=== PATIENT | male | born 1950 | race Caucasian/White ===

== ENCOUNTER 2022-10-15 11:26 | Outpatient (CLI) | payer MEDICARE, BC, SELFPAY ==
[2022-10-15 18:49] LABS: Chloride* 94 mmol/L (96-114); Sodium* 126 mmol/L (135-149)
[2022-10-15 18:50] LABS: Potassium* 4.9 mmol/L (3.6-5.1)
[2022-10-15 18:52] LABS: Estimated Glomerular Filt Rate 79 ml/min
[2022-10-15 18:53] LABS: Blood Urea Nitrogen* 15 mg/dL (7-30); Calcium* 9.7 mg/dL (8.4-10.6); Carbon Dioxide* 23 mmol/L (20-32); Glucose* 78 mg/dL (60-115)
[2022-10-15 19:22] LABS: PSA Screen* 1.19 ng/mL (0.10-4.00)
== END 2022-10-15 11:27 | disposition home or self-care (01) ==
PROVIDERS: PCP Family Medicine; Visit Provider Family Medicine
DX: I10 Essential (primary) hypertension (principal); Z12.5 Encounter for screening for malignant neoplasm of prostate
CPT/HCPCS: 80048; 84153

== ENCOUNTER 2022-12-02 09:14 | Outpatient (CLI) | payer MEDICARE, BC, SELFPAY ==
[2022-12-02 13:14] LABS: Chloride* 84 mmol/L (96-114); Potassium* 4.8 mmol/L (3.6-5.1)
[2022-12-02 13:17] LABS: Blood Urea Nitrogen* 22 mg/dL (7-30); Carbon Dioxide* 23 mmol/L (20-32); Creatinine* 1.3 mg/dL (0.5-1.5); Estimated Glomerular Filt Rate 58 ml/min
[2022-12-02 13:18] LABS: Calcium* 9.4 mg/dL (8.4-10.6); Glucose* 105 mg/dL (60-115)
[2022-12-02 14:22] LABS: Sodium* 118 mmol/L (135-149)
== END 2022-12-02 09:15 | disposition home or self-care (01) ==
PROVIDERS: PCP Family Medicine; Visit Provider Family Medicine
DX: I10 Essential (primary) hypertension (principal)
CPT/HCPCS: 80048

== ENCOUNTER 2023-10-16 07:03 | Outpatient (CLI) | payer MEDICARE, BC, SELFPAY ==
--- OUTSIDE RECORDS SUMMARY | 2023-10-16 07:06 | XMS_ITS | Continuity of Care Document ---
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 Production Cost Estimator Name Role Phone Candida Lind MD Unavailable Unavailable Allergies, Adverse Reactions, Alerts Substance Reaction Status Criticality PENICILLIN HivesHives Active No Information Medications Medication Instructions Dosage Effective Dates (start - stop) Status Comments lisinopril 10 mg tablet take 1 tablet by oral route every day 10 MG - Active Procedures Procedure Date Offic/outpt E&m New Mod-hi Routine Serum Collection Cyanocobalamin Hepatic Function Panel Advance Directives Directive Yes / No Effective Date File Name No Information Encounters Encounter Description Practice Location Reason(s) For Visit Diagnoses Date Provider Providers Copied on Encounter [facility], [address] [address], [place], [place], [id number], [place] tel:[phone] [facility] No Information 7 Lelo Tirado . [address] [place] [address], [address], [id number] , [place]. tel: [phone] Offic/outpt E&m New Mod-[facility], [address] [address], [place], [place], [id number], [place] tel:[phone] [facility] GI Symptoms or Concerns (chief complaint) Positive hepatitis C antibody testEssential (primary) hypertension Sep- 7 Lelo Tirado . [address] [place] [address], [address], [id number] , [place]. tel: [phone] Referring Provider: Kale Cruz MD C, [address] , [place], [address]. tel:[phone] Family History Family Member Type Diagnosis Age At Onset Daughter Problem (finding) Alive and well Son Problem (finding) Maternal history of elisabeth betes mellitus Brother Problem (finding) Crohn's disease Payers Payer name Insurance type Covered constitution party ID Authoriza tion(s) [employer] [place] [employer] [place] [id number] Social History Type Description Quantity Date Captured Comments Alcohol Use Details Unknown Caffeine Use Details Unknown Tobacco Use Status Smoking Status No Information Sex Male Chief Complaint And Reason For Visit No Information Reason For Referral Reason For Referral No Information History Of Present Illness Encounter Date Complaint History Of Prese nt Illness GI Symptoms or Concerns The tamela ent is a very pleasant 67-year-old man who presents to GI Clinic today to discuss a positive hepatitis C antibody test. As part of a preoperative physical for cataract surgery, the patient had labs drawn. It was noted that his liver tests were elevated. On June 23, 2017, his AST was 220, ALT 149, bilirubin 1.4, alk phos 86. His hepatitis C antibody was checked and was reactive. Hepatitis B surface antigen was negative. Also, his platelets were normal at 169,000 with an MCV of 105, hemoglobin of 12.9, and white blood cell count of 6.The patient states he has no history ever of inhaled or IV drug use. He has had the same sexual partner, his for over 30 years. Never had a tattoo. He has never had a blood transfusion. He has no known hepatitis C contacts.The patient does say that he has a strong alcohol history. He was drinking multiple beers daily. When his liver tests returned elevated, he stopped drinking and has now been off of alcohol for over six weeks. Functional Status Date Functional Assessmen t No Information Instructions Date Instruction Additional Infor mation No Information Assessments Type Assessment Date No Information Patient Care Teams Name Effective Dates (start - stop) Status Members No Information
--- NOTE | 2023-10-16 07:15 | CRLHL7_ITS ---
For Patients: As a result of the Century Cures Act, medical imaging exams and procedure reports are released immediately into your electronic medical record. You may view this report before your referring provider. If you have questions, please contact your health care provider. Examination: US abdominal aorta Indication: Possible aneurysm on prior x-ray Technique: Marcos scale and color Doppler images of the aorta and common iliac arteries are obtained. Comparison: Lumbar spine films 12/02/2022 Findings: Proximal aorta: 2.9 x 2.9 cm Mid aorta: 2.1 x 2.1 cm Distal aorta: 2.1 x 2.0 cm Right common iliac artery: 1.2 x 1.1 cm Left common iliac artery: 1.2 x 1.3 cm Recommended imaging interval for ectatic aorta: 2.5-2.9 cm: 5 years Impression: Ectatic aorta measuring up to 2.9 cm without aneurysm. Dictated by Ryan Pulido MD @ 10/16/2023 2:29:55 PM (Electronically Signed)
== END 2023-10-16 07:04 | disposition home or self-care (01) ==
LOC: US 07:04
PROVIDERS: PCP Family Medicine; Visit Provider Family Medicine
DX: Z13.6 Encounter for screening for cardiovascular disorders (principal)
CPT/HCPCS: 76775

== ENCOUNTER 2023-10-29 08:15 | Outpatient (RCR) | payer MEDICARE, BC, SELFPAY ==
--- NOTE | 2023-09-23 10:43 | OT.OPOE ---
OT Outpatient Ortho Eval OT Outpatient Ortho Eval* Start: 09/23/23 09:00 Freq: Status: Active Protocol: Document 09/23/23 09:01 EARNEST (Rec: 09/23/23 10:37 EARNEST [id number]) E-signed By July Diaz OTMarizol/Timmy, TERESA OT OP Ortho Eval Details Complexity Complexity Low Insurance Information Insurance Information Medicare B Outpatient History/Precautions Current Condition/Medical Diagnosis Referring Provider Enoch Finn PA-C Treatment Diagnosis Stiffness in L hand, M25.642; Muscle Weakness, M62.81 Date of Onset 08/08/2023 Other Precautions Wear this wrist brace with all activities as patient is very active; come out of the wrist brace for sedentary activities, bathing, eating, sleeping. Occupational therapy referral provided to work on motion and strengthening. While I understand he has chronically poor wrist motion, our goal is to obtain even a few more degrees both in flexion and extension. From Office visit 09/04/23 and next f/u in 1 month for repeat X- rays Medical Conditions Arthritis Other Conditions Primary Condition (Medical dx) : closed, acute left distal radius intra-articular extended nondisplaced dorsal fracture without angulation or significant impaction (date of injury 08/08/2023) Medical/Functional History Medical History Reviewed Yes Social History Employment Status Retired Hobbies Chopping wood, watching football, keeping up with housework Ortho Subjective Subjective Subjective Good luck getting better motion out of this left wrist Pain Assessment Pain Present Pain Present Pain Reported Location Left Wrist Description Dull, Achy,With Movement Intensity 2 Goniometric Comments Goniometric Comments Goniometric Comments R hand ([id number] patient reports an injury 30 years ago and assumes he doesn 't have full AROM) Wrist circumference: 16 cms (1 cm less than the unaffected side) Ulnar Deviation: 14 degrees Radial Deviation: 18 degrees Wrist Flexion: 36 degrees Pronation: 90 degrees Supination: 80 degrees L hand Wrist circumference: 17 cms Ulnar Deviation: 11 degrees Radial Deviation: 9 degrees Wrist Flexion: 32 degrees Wrist Extension: 39 degrees Pronation: 90 degrees Supination: 78 degrees Hand Pinch/Popcorn Attendant Strength Hand Right Popcorn Attendant Strength Position 1 (lbs) 37 Popcorn Attendant Strength Position 2 (lbs) 39 Lateral Pinch Strength (lbs) 16 Three Point Pinch (lbs) 12 Left Popcorn Attendant Strength Position 1 (lbs) 23 Popcorn Attendant Strength Position 2 (lbs) 27 Lateral Pinch Strength (lbs) 14 Three Point Pinch (lbs) 14 OT Objective Data Sensation Sensation Assessment Summary Comments The distal portion of the L UE is intact to light touch, pressure, hot/cold temperature both on dorsal and lamb sides Additional Information Objective Additional Information Follow up visit with ortho provider was on 09/04/23 (1 month follow up) Information below is copied from chart/last office visit with Provider: Enoch Bryson. Left Wrist: No obvious swelling, ecchymosis, or erythema. No gross deformity; there is noted atrophy of the hand musculature, and forearm musculature Minimal Tender palpation and percussion distal radius AROM: Flexion 20?, extension 10? Nontender to manipulation and resisted wrist flexion/ extension 2+ radial pulse, pink, warm, appropriate capillary refill digits; intact dermatomes and myotomes distally (radial, ulnar, and median nerve distributions) Plan Fracture appears stable and shows evidence of healing. The slight ulnar positive position likely result of both this fracture as well as an old left wrist fracture from years past. Okay to come out of the cast, which was removed without complications, and placing a removal wrist brace and Tubigrip. Wear this wrist brace with all activities as patient is very active; come out of the wrist brace for sedentary activities, bathing, eating, sleeping. Discomfort can be managed with oral NSAIDs, acetaminophen, rest, ice. Occupational therapy referral provided to work on motion and strengthening. While I understand he has chronically poor wrist motion, our goal is to obtain even a few more degrees both in flexion and extension. Will see him back in 1 month for repeat three views left wrist, and clinical exam. Likely no further follow-up after this. Impression: Relatively stable appearing left distal radius and ulnar styloid fragment fractures. PA, Lateral and Oblique views of the left wrist were obtained on 09/04/2023 from [facility], were ordered by a different physician, were reviewed by me today, and show relatively stable appearing left distal radius fracture and ulnar styloid fragment compared with radiographs dated 08/21/2023. Increased radiodensity consistent with healing. Radiolunate angle approximately 15 ?, lunate tip dorsally. OT Problems Problems Problems Decreased Strength,Decreased Range of Motion,Pain,Decreased Coordination,Lifting,Gripping ,Pinching Problems Comments Vacuuming and doing dishes Other Problems Opening Containers Patient Potential Good Assessment Assessment Assessment 73 year old had a fall in the [place] resulting in a closed, acute left distal radius intra -articular extended nondisplaced dorsal fracture without angulation or significant impaction (date of injury 08/08/2023). Cast was removed on 09/04/23 and x-rays showed the fracture is stable and showing evidence of healing. Per chart review, provider wrote slight ulnar positive position likely result of both this fracture as well as an old left wrist fracture from years past. Patient was instructed at this f/u apt to: Wear wrist brace with all activities as patient is very active; come out of the wrist brace for sedentary activities, bathing, eating, sleeping. Discomfort can be managed with oral NSAIDs, acetaminophen, rest, ice. Occupational therapy referral provided to work on motion and strengthening. While I understand he has chronically poor wrist motion, our goal is to obtain even a few more degrees both in flexion and extension. OT POC includes edema management, conservative pain control as needed with modalities, AROM, AAROM, slowly beginning strengthening as patient tolerates. Patient's next Ortho f/u is in 1 month. Occupational Therapy Treatment Plan - OP Potential Rehabilitation Potential Good Barriers Barriers to goal attainment None noted Set Goals Goals Set with Patient Yes Goals Goals 1. Through activity participation in skilled therapy sessions, and consistency in performing a customized HEP, patient will improve capacity of tendons and muscles to manage load in order to have less pain with ADLs, work, leisure activities and IADLs. 2. Patient will increase Active L wrist flexion (32 degrees/extension (39 degrees) from a total of 71 degrees of motion to a total of 80 degrees of active flexion/ extension in order to wash dishes 3. 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 Patient will decrease edema in the L wrist by .5 cm's (L Wrist circumference: 17 cms) GOAL 16.5 cms (unaffected R side was 16 cm's). Target Date 6 weeks Treatment Plan Treatment Plan Evaluation,Edema Control,Joint Mobilization,Manual Therapy, Ultrasound,Therapeutic Exercise,Education Expected Frequency 1x Week Expected Duration 8-10 Weeks Home Program Home Program Home Program Initiated Home Program Specifics AROM of the L wrist to end ranges/stretches of the flexors and extensor muscles of the wrist Tendon glides on the L hand, active muscle pumping (open and close hand). Patient was provided with 2 handouts as well as yellow Therjayy leonard on 09/23/23 Certification Certification I Certify That: Therapy Services Provided, Therapy Plan Established, Therapy Plan Reviewed Recertification Information Recertification Information Initial Certification Date 09/23/23 Recertification Due Date 12/22/23 Provider Signature Shows Agreement With POC & Medical Necessity Physician Comment/Change Comment or Changes Physician NPI Number #
--- NOTE | 2023-10-29 10:24 | PT.OPEX ---
PT [facility] Outpatient Eval PT [facility] Outpatient Eval Start: 10/29/23 07:48 Freq: Status: Active Protocol: Document 10/29/23 07:49 CRP (Rec: 10/29/23 10:21 CRP [id number]) E-signed By Krzysztof Arvizu PT Physical Therapy Outpatient Evaluation Insurance Information Recert Due Date 01/27/24 Insurance Name Medicare B Medical Diagnosis Chronic back pain Referring MD Dr Cruz Subjective Subjective Pt c/o upper lumbar spine pain . Mornings are less painful and as the day progresses it will get worse. Sitting is OK and lying down. Pain will increase significantly with standing and walking. Pain has been an issue for about 5 years. No specific injury. Will have times of knee pain bilaterally but this is not necessarily related to his low back. Has not found anything that helps his back. No pain into his legs. No numbness or tingling into the LEs. Pain Comments Can be as high as 10/10 Current Work Status Retired Objective Range of Motion Trunk ROM Flex mod dec with guarded movement and pain Ext min/mod dec without pain Bilat SB mod dec without pain Bilat rot mod dec Hip ROM WNL bilat Strength MMT Myotomes WNL Trunk flex/ext 3-/5 Palpation Palpable pain lower lumbar spine bilat Palpable pain TL junction bilat Posture Flattened lumbar spine with sway back posture Sensation/Reflexes Sensation intact to light touch Other/Pertinent Objective SLR negative bilat for LBP but shows adverse neurodynamics on L Functional Test Performed & Score Oswestry Assessment Assessment/Impression Pt presents to the clinic with long standing issues of TL junction to low back pain. Pts presentation is characterized by painful loss of lumbar spine ROM, poor lumbopelvic control, fear avoidance behavior, painful hypomobility of lumbar spine segments and adverse neurodynamics. Skilled PT is necessary to incorporate ther ex, nm james, manual therapy, ther act and pt education to decrease pain and improve functional mobility. Primary Functional Limitations Standing Walking Bending Lifting Plan of Care Rehabilitation Potential Good Physical Therapy Goals 1. Pt will be independent with HEP in 8 weeks. 2. 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 3. Pt will walk greater than 15 minutes for exercise with 90% decrease in pain in 12 weeks. Coordination/Communication With Referral Source Treatment Plan/Direct Interventions Joint Mobilization,Manual Therapy,Neuromuscular Re-ed, Self-Care/Home Management, Therapeutic Activities, Therapeutic Exercises Frequency/Duration 1-2x/wk for 12 weeks Patient Will Be Discharged From Therapy Completion of LTG(s),Skills Plateau,Independent w/HEP, Independently Progressing Evaluation Billing Untimed Code Treatment Minutes 30 Complexity Moderate Certification Information Initial Certification Date 10/29/23 Ending Certification Date 01/27/24 Provider Signature Shows Agreement With POC & Medical Necessity Physician Signature & Date Requested Please Sign/Date Here Physician Comment/Change : Physician NPI Number #
== END 2024-02-26 23:59 | disposition home or self-care (01) ==
PROVIDERS: PCP Family Medicine; Visit Provider Physician Assistant Surgical
DX: S52.509A Unspecified fracture of the lower end of unspecified radius, initial encounter for closed fracture (principal); M54.9 Dorsalgia, unspecified; G89.29 Other chronic pain; M25.642 Stiffness of left hand, not elsewhere classified; M62.81 Muscle weakness (generalized); Z51.89 Encounter for other specified aftercare
CPT/HCPCS: 80048; 80061; 84153; 84443; 97110; 97162; 97165; X5282

== ENCOUNTER 2024-06-28 07:16 | Emergency (ER) | payer MEDICARE, BC, SELFPAY ==
[2024-06-28] VITALS (10 sets, daily range): BP systolic 92–125; BP diastolic 59–84; PULSE 65–120; RESP 18; TEMP 36.1; O2SAT 90–100; BMI 23.6
[2024-06-28] MEDS: 0.9 % SODIUM CHLORIDE 1000 ml 1,000 ML IV (07:40)
--- NOTE | 2024-06-28 07:48 | ED_ITS ---
HPI - General Adult General Chief complaint: Weakness <Elva Panda MD - Last Filed: 06/29/24 18:53> Stated complaint: lightheaded,dizzy <Elva Panda MD - Last Filed: 06/29/24 18:53> Time Seen by Provider: 06/28/24 07:37 <Elva Panda MD - Last Filed: 06/29/24 18:53> Source: patient <Elva Panda MD - Last Filed: 06/29/24 18:53> Mode of arrival: ambulatory <Elva Panda MD - Last Filed: 06/29/24 18:53> Limitations: no limitations <Elva Panda MD - Last Filed: 06/29/24 18:53> History of Present Illness HPI narrative: 74-year-old presents with a vague history of subjective dizziness more so described as weakness rather than vertigo for the past couple of days. But he does contradict the timing quite a bit. It does sound as though this is intermittent. Patient arrived today with the intent to drop his off for her scheduled colonoscopy and he was feeling so weak that he was worried he might not be able to get back to his truck. Because of this, he has checked himself in to the emergency department. He is not any chest pain, he does not note any focal neurological change. He says that his has been out of town for the past couple of weeks on vacation and he admits to not eating well when she is not around because he ?cannot cook for himself?. He does contradict himself as well when we discussed how much alcohol to he drinks. He tells me that he is drinking a lot less than he used to but he also alludes to the fact that he drinks make a lobes from time to time and then regularly drinks whiskey as well. When I try to further quantify and pin him down on how much alcohol on a daily basis, he gives vague answers. Frequently but definitely avoiding the question. When asked about bloody stools, any GI symptoms, it sounds as though he has had a history of upper GI bleed in the past and endoscopy. I will need to chance to review the records to further clarify this. It does not sound as though he takes any antacids. He has not noticed any bloody stools recently but says that he had coffee-ground stools years ago when he had the endoscopy. When I try to pin down timing on that, he is again vague. When asked about any recent falls, he says that he falls frequently but again does not dilute to any particular recent falls or new trauma or injury. He says that he lives out in the [facility] and has minor injuries frequently but has been advised to stay closer to the house due to previous injuries. He does not believe there have been any recent changes to his medications. I do ask if he believes he has been taking those properly while his was out of town and he isn't quite sure but thinks that he has. He denies any fevers, skin rashes, GI changes, chest pain, breathing difficulties. No pertinent travel for him, no recent illness exposures. Denies any focal neurological changes or stroke-like symptoms. He does allude to some chronic neck and back pain, does not use any narcotics or any particular treatments for that and states that those are not new ailments. Denies any current tobacco use. Denies anticoagulant use. Past medical history notable for hypertension, osteoarthritis of multiple sites. BPH. He also is admitting to regular alcohol use though he does not quantify it for me. Current home medications are listed, he cannot remember what they are but tells me he is soon as that these are correct. ROS is notable for the generalized symptoms as described above only, though quite vague. He does otherwise specifically deny acute symptoms times 12 systems. <Elva Panda MD - Last Filed: 06/29/24 18:53> Related Data Home medications: Previous Rx's ?Medication ?Instructions ?Recorded finasteride 5 mg tablet 5 mg PO QDAY #90 tabs 10/07/23 lisinopril 20 mg tablet 20 mg PO DAILY #90 tabs 10/07/23 tamsulosin 0.4 mg capsule 0.8 mg (2 x 0.4 mg) PO QHS #60 caps 10/07/23 <Elva Panda MD - Last Filed: 06/29/24 18:53> Allergies/adverse reactions: Allergies Allergy/AdvReac Type Severity Reaction Status Date / Time penicillin V Allergy Mild Rash Verified 10/07/23 09:52 <Elva Panda MD - Last Filed: 06/29/24 18:53> [facility] Medical History: Medical History Distal radius fracture (08/08/23) ?S52.509A - Unspecified fracture of the lower end of unspecified radius, initial encounter for closed fracture (ICD-10) Colitis due to Clostridium difficile ?A04.72 - Enterocolitis due to Clostridium difficile, not specified as recurrent (ICD-10) <Elva Panda MD - Last Filed: 06/29/24 18:53> Surgical History: Surgical History S/P partial colectomy ?Z90.49 - Acquired absence of other specified parts of digestive tract (ICD- 10) Status post vasectomy (10/19/12) ?Z98.52 - Vasectomy status (ICD-10) Status post cataract extraction ?Z98.49 - Cataract extraction status, unspecified eye (ICD-10) Status post appendectomy ?Z90.49 - Acquired absence of other specified parts of digestive tract (ICD- 10) <Elva Panda MD - Last Filed: 06/29/24 18:53> Social History: Social History Narrative: alcohol abuse What is your current living situation?: I presently have a place to live Problems where you live: no known problems In the past 12 months, utilities in danger of being shut off: no In past 12 months, lack of transportation kept you from medical appts, meetings, work, or getting things needed for daily living: no In the past 12 mos, have been you worried that your food would run out before you had money to buy more?: never true In the past 12 mos, the food you bought just didn't last and you didn't have money to buy more?: never true Smoking Status: Former smoker What tobacco products do you use: cigarettes Smoking quit date/years: <= 15 years ago Do you use any of these nicotine containing products: None Second hand tobacco smoke exposure: No How often do you have a drink containing alcohol: monthly or less How often do you have six or more drinks on one occasion: Never AUDIT-C Alcohol total score: 1 Non-prescribed substance use: denies use How often does anyone, including family, friends and others, physically hurt you : never How often does anyone, including family, friends and others, insult or talk down to you: never How often does anyone, including family, friends and others, threaten you with harm: never How often does anyone, including family, friends and others, scream or curse at you: never Little interest or pleasure in doing things: not at all Feeling down, depressed, or hopeless: not at all service: No <Elva Panda MD - Last Filed: 06/29/24 18:53> Exam Const: Vital Signs, click to edit/add: Vital Signs - 24 hr 06/28/24 07:19 06/28/24 07:45 06/28/24 08:32 Temperature 97 F L Pulse Rate 89 73 Pulse Rate [Right Pulse Oximeter] 120 H Respiratory Rate 18 Blood Pressure Blood Pressure [Ri ght Upper Arm] 92/59 L Pulse Oximetry 99 96 100 Oxygen Delivery Me thod Room Air 06/28/24 08:45 06/28/24 08:48 06/28/24 09:00 Temperature Pulse Rate 87 74 65 Pulse Rate [Right Pulse Oximeter] Respiratory Rate Blood Pressure 103/78 Blood Pressure [Ri ght Upper Arm] Pulse Oximetry 98 100 100 Oxygen Delivery Me thod 06/28/24 09:03 06/28/24 09:15 06/28/24 09:33 Temperature Pulse Rate 67 65 80 Pulse Rate [Right Pulse Oximeter] Respiratory Rate Blood Pressure 125/76 Blood Pressure [Ri ght Upper Arm] Pulse Oximetry 100 100 90 Oxygen Delivery Me thod 06/28/24 09:35 Temperature Pulse Rate 81 Pulse Rate [Right Pulse Oximeter] Respiratory Rate Blood Pressure 123/84 Blood Pressure [Ri ght Upper Arm] Pulse Oximetry 90 Oxygen Delivery Me thod <Elva Panda MD - Last Filed: 06/29/24 18:53> Vital Signs, click to edit/add: Vital Signs - 24 hr 06/28/24 07:19 06/28/24 07:45 06/28/24 08:32 Temperature 97 F L Pulse Rate 89 73 Pulse Rate [Right Pulse Oximeter] 120 H Respiratory Rate 18 Blood Pressure Blood Pressure [Ri ght Upper Arm] 92/59 L Pulse Oximetry 99 96 100 Oxygen Delivery Me thod Room Air 06/28/24 08:45 06/28/24 08:48 06/28/24 09:00 Temperature Pulse Rate 87 74 65 Pulse Rate [Right Pulse Oximeter] Respiratory Rate Blood Pressure 103/78 Blood Pressure [Ri ght Upper Arm] Pulse Oximetry 98 100 100 Oxygen Delivery Me thod 06/28/24 09:03 06/28/24 09:15 06/28/24 09:33 Temperature Pulse Rate 67 65 80 Pulse Rate [Right Pulse Oximeter] Respiratory Rate Blood Pressure 125/76 Blood Pressure [Ri ght Upper Arm] Pulse Oximetry 100 100 90 Oxygen Delivery Me thod 06/28/24 09:35 Temperature Pulse Rate 81 Pulse Rate [Right Pulse Oximeter] Respiratory Rate Blood Pressure 123/84 Blood Pressure [Ri ght Upper Arm] Pulse Oximetry 90 Oxygen Delivery Me thod <Christian Killian MD - Last Filed: 06/28/24 12:01> Other: Thank on questioning and history time line. Does not seem to be deceptive but rather may be exhibiting some illness related delirium or some chronic memory impairment. He is otherwise very pleasant and cooperative. <Elva Panda MD - Last Filed: 06/29/24 18:53> HENMT: Common normals: normocephalic <Elva Panda MD - Last Filed: 06/29/24 18:53> Head and scalp: normal to inspection and normocephalic <Elva Panda MD - Last Filed: 06/29/24 18:53> Face and sinus: normal facial exam <Elva Panda MD - Last Filed: 06/29/24 18:53> Mouth: oral and palatal mucosa normal <Elva Panda MD - Last Filed: 06/29/24 18:53> Throat: posterior oropharynx normal <Elva Panda MD - Last Filed: 06/29/24 18:53> Eye: Common normals: conjunctivae normal <Elva Panda MD - Last Filed: 06/29/24 18:53> General eye: normal appearance of both eyes <MD Brandon Bui Last Filed: 06/29/24 18:53> Conjunctiva: conjunctiva(e) normal <MD Brandon Bui Last Filed: 06/29/24 18:53> Neck & C-Spine: Common normals: full ROM and no lymphadenopathy <MD Brandon Bui Last Filed: 06/29/24 18:53> Cervical spine: cervical ROM normal <MD Brandon Bui Last Filed: 18:53> Chest: Common normals: inspection of chest normal <MD Brandon Bui Last Filed: 06/29/24 18:53> Resp: Common normals: normal respiratory effort, no use of accessory muscles and clear to auscultation bilaterally <MD Brandon Bui Last Filed: 06/29/24 18:53> Effort & inspection: able to speak in complete sentences <MD Brandon Bui Last Filed: 06/29/24 18:53> Auscultation: clear to auscultation bilaterally <MD Brandon Bui Last Filed: 06/29/24 18:53> Cardio: Common normals: regular rate, regular rhythm, S1 normal heart sound, S2 normal heart sound and no murmurs <MD Brandon Bui Last Filed: 06/29/24 18:53> Rate: regular rate <MD Brandon Bui Last Filed: 06/29/24 18:53> Rhythm: regular rhythm <MD Brandon Bui Last Filed: 06/29/24 18:53> Heart sounds: S1 normal and S2 normal <MD Brandon Bui Last Filed: 06/29/24 18:53> GI: Common normals: Normal to inspection, nondistended, normoactive bowel sounds present, soft to palpation, non-tender and no masses <MD Brandon Bui Last Filed: 06/29/24 18:53> Palpation: soft <MD Brandon Bui Last Filed: 06/29/24 18:53> Other: Liver seems enlarged 1-2 cm below costal margin, no ascites. <Elva Panda MD - Last Filed: 06/29/24 18:53> Back & Pelvis: Common normals: thoracic and lumbar spine normal to inspection <Elva Panda MD - Last Filed: 06/29/24 18:53> Extremity: Common normals: normal to inspection, normal capillary refill and no pedal edema <Elva Panda MD - Last Filed: 06/29/24 18:53> Neuro: Common normals: CN's II-XII intact bilaterally and moves all extremities <Elva Panda MD - Last Filed: 06/29/24 18:53> Speech: speech normal <Elva Panda MD - Last Filed: 06/29/24 18:53> Motor exam: strength 5/5 throughout, no tremor noted and no movement abnormalities noted <Elva Panda MD - Last Filed: 06/29/24 18:53> Psych: Appearance: grossly normal <Elva Panda MD - Last Filed: 06/29/24 18:53> Attitude: engaged <Elva Panda MD - Last Filed: 06/29/24 18:53> Activity/motor behavior: appropriate eye contact <Elva Panda MD - Last Filed: 06/29/24 18:53> Mood and affect: euthymic mood <Elva Panda MD - Last Filed: 06/29/24 18:53> Insight: fair <Elva Panda MD - Last Filed: 06/29/24 18:53> Judgement: fair <Elva Panda MD - Last Filed: 06/29/24 18:53> Skin: Common normals: no rashes or lesions noted <Elva Panda MD - Last Filed: 06/29/24 18:53> General skin exam: no rashes or lesions noted <Elva Panda MD - Last Filed: 06/29/24 18:53> Course Course ED Course: 74-year-old male with mild hypotension and tachycardia, afebrile presenting with vague generalized weakness in the setting of some delirium versus memory impairment. Differential diagnosis is wide including acute cardiac process, alcoholism, anemia, infection, electrolyte abnormality, vitamin deficiency, kidney injury, neurological process, stroke, amongst many others. Unfortunately exam was not particularly helpful in pending this down. Plan 1. Insert IV, basic labs to look for infection, cardiac process, anemia, electrolyte abnormality. Head CT, EKG, advanced practice provider, 1 L normal saline. Will hand over care to incoming day shift partner. <Elva Panda MD - Last Filed: 06/29/24 18:53> Reevaluation(s) Reevaluation #1: Patient signed out to Dr. Killian at shift change. Dr. Perla reassessed the patient at about 8:15 a.m.. Patient reports that he is . His had been up at the cabin for about 10 days. He knows that he has not been eating or drinking well while she has been gone. He says he just does not a code. He has been eating frozen pizza as and take out subway sandwiches. He is probably min not been drinking enough fluids as well. He has been feeling a little bit weak and dizzy for a couple of days. He brought his to the hospital today for her outpatient colonoscopy and was still feeling weak and dizzy. He was actually going to go out to his truck to sleep but decided he was just too weak and too dizzy so he came here to the ER for No headache. No recent falls. No chest pain. No palpitations. No cough. No trouble breathing. No abdominal pain. No nausea or vomiting. Bowel movements have been normal. No black or bloody stools. No diarrhea. Urination has been much less than normal but otherwise no dysuria, urgency, frequency. No rash. He has a history of high blood pressure and is on lisinopril. He says he has not measured his blood pressure recently but he typically runs pretty good in the 120s systolic. He recalls once, few years ago, he was dizzy like this and was seen at the hospital in [place]. Apparently they had to adjust his blood pressure medications because of borderline hypotension at that time. <Christian Killian MD - Last Filed: 06/28/24 12:01> Reevaluation #2: Recheck labs are back. No definitive cause for dizziness and weakness identified. 1. Neuro: Head CT is normal. No signs of recent intracranial hemorrhage. No signs of head trauma. He is not having any focal deficits to suggest stroke. He is describing an overall weak feeling and lightheaded dizziness rather than vertigo. At this point I do not think he needs MR imaging 2. The heme: He does have anemia. Hemoglobin today is 11.5. This is down from most recent hemoglobin of 13 which was taken 2 years ago in 2021. Unclear if this is acute or chronic. I wonder if he could be having some subacute GI bleeding. Denies any recent black or bloody stools. He is not anticoagulated. Platelet count normal. 3. ID: No fevers. White count normal. Procalcitonin reassuring. Urinalysis negative. No recent cough. No trouble breathing to suggest pneumonia. COVID/influenza/RSV PCR negative. 4. Cardiac: EKG nonischemic. Troponin undetectable. Not having any chest pain or palpitations. Has sinus rhythm on his EKG with some premature beats. 5. Hepatic: Is very vague about his alcohol consumption. Dr. Panda suspicious that he is probably a fairly heavy drinker but is not reporting it. LFTs are abnormal with AST of 300 and ALT of 213. Total bilirubin normal at 0.7. No signs of active acute alcohol intoxication.. Alcohol level negative. No tremor or signs of alcohol withdrawal. He does report that he has been drinking ?too much? while his 's been away at the cabin. He still not quantify how much she is drinking. He endorses his plan to stop drinking altogether. He is feeling completely back to normal in much better after receiving on a L of IV crystalloid here in the ER. Pulses come down and blood pressure has come up. Both are in normal ranges now. He is politely but firmly requesting a rapid discharge because his ride home is here to pick him up. His has completed her colonoscopy and she is at his bedside. Discussed the workup showing renal insufficiency, mild anemia, abnormal LFTs. Patient needs to follow up outpatient with his primary care provider within 1 week for recheck. He will abstain from alcohol. He will try to eat a regular healthy diet and stay hydrated. We discussed that if he has any worsening symptoms are recurring dizziness he should return to the ER right away to be rechecked. Reviewed with the patient and his . He and his are eager for discharge. <Christian Killian MD - Last Filed: 06/28/24 12:01> Vital Signs Vital signs: Initial Vital Signs Temperature 97 F L 06/28/24 07:19 Temperature Source Temporal Artery Scan 06/28/24 07:19 Pulse Rate 120 H 06/28/24 07:19 Pulse Rhythm Regular 06/28/24 07:19 Respiratory Rate 18 06/28/24 07:19 Blood Pressure 92/59 L 06/28/24 07:19 Blood Pressure Mean 70 06/28/24 07:19 Blood Pressure Position Sitting 06/28/24 07:19 Pulse Oximetry 99 06/28/24 07:19 Oxygen Delivery Method Room Air 06/28/24 07:19 Vital Signs Temperature 97 F L 06/28/24 07:19 Pulse Rate 120 H 06/28/24 07:19 Respiratory Rate 18 06/28/24 07:19 Blood Pressure 92/59 L 06/28/24 07:19 Pulse Oximetry 99 06/28/24 07:19 Oxygen Delivery Method Room Air 06/28/24 07:19 Temperature 97 F L 06/28/24 07:19 Pulse Rate 81 06/28/24 09:35 Respiratory Rate 18 06/28/24 07:19 Blood Pressure 123/84 06/28/24 09:35 Pulse Oximetry 90 06/28/24 09:35 Oxygen Delivery Method Room Air 06/28/24 07:19 <Elva Panda MD - Last Filed: 06/29/24 18:53> Initial Vital Signs Temperature 97 F L 06/28/24 07:19 Temperature Source Temporal Artery Scan 06/28/24 07:19 Pulse Rate 120 H 06/28/24 07:19 Pulse Rhythm Regular 06/28/24 07:19 Respiratory Rate 18 06/28/24 07:19 Blood Pressure 92/59 L 06/28/24 07:19 Blood Pressure Mean 70 06/28/24 07:19 Blood Pressure Position Sitting 06/28/24 07:19 Pulse Oximetry 99 06/28/24 07:19 Oxygen Delivery Method Room Air 06/28/24 07:19 Vital Signs Temperature 97 F L 06/28/24 07:19 Pulse Rate 120 H 06/28/24 07:19 Respiratory Rate 18 06/28/24 07:19 Blood Pressure 92/59 L 06/28/24 07:19 Pulse Oximetry 99 06/28/24 07:19 Oxygen Delivery Method Room Air 06/28/24 07:19 Temperature 97 F L 06/28/24 07:19 Pulse Rate 81 06/28/24 09:35 Respiratory Rate 18 06/28/24 07:19 Blood Pressure 123/84 06/28/24 09:35 Pulse Oximetry 90 06/28/24 09:35 Oxygen Delivery Method Room Air 06/28/24 07:19 <Christian Killian MD - Last Filed: 06/28/24 12:01> Medications Administered Medications: Discontinued Medications Generic Name Dose Route Start Last Admin Trade Name Freq PRN Reason Stop Dose Admin Sodium Chloride 1,000 mls @ 1,000 mls/hr 06/28/24 07:36 06/28/24 10:30 0.9 % Sodium Chloride 1000 Ml IV 06/28/24 08:35 1,000 mls/hr .Q1H PAVAN Infusion <Elva Panda MD - Last Filed: 06/29/24 18:53> Discontinued Medications Generic Name Dose Route Start Last Admin Trade Name Freq PRN Reason Stop Dose Admin Sodium Chloride 1,000 mls @ 1,000 mls/hr 06/28/24 07:36 06/28/24 10:30 0.9 % Sodium Chloride 1000 Ml IV 06/28/24 08:35 1,000 mls/hr .Q1H PAVAN Infusion <Christian Killian MD - Last Filed: 06/28/24 12:01> Medical Decision Making Lab Data Labs: Lab Results 06/28/24 06/28/24 06/28/24 Range/Units 07:35 07:45 09:30 WBC 9.20 (4.50-11.00) K/uL RBC 3.40 L (4.30-5.90) m/uL Hgb 11.5 L (13.5-17.5) gm/dL Hct 34.7 L (37.0-53.0) % MCV 102 H (80-100) fL MCH 34 (26-34) pg MCHC 33 (32-36) gm/dL RDW Coeff of Shannan 12.4 (11.5-15.5) % Plt Count 178 (140-440) K/uL Neut % (Auto) 71.9 (42.0-72.0) % Lymph % (Auto) 17.9 L (20-44) % [place] % (Auto) 8.0 (0.0-11.0) % Eos % (Auto) 1.2 (0.0-7.0) % Baso % (Auto) 0.5 (0.0-3.0) % Neut # (Auto) 6.60 (1.7-7.0) K/uL Lymph # (Auto) 1.60 (0.90-2.90) K/uL [place] # (Auto) 0.70 (0.00-0.90) K/UL Eos # (Auto) 0.11 (0.00-0.50) K/uL Baso # (Auto) 0.05 (0.00-0.30) K/uL Abs Immat Gran (auto) 0.05 (0.00-0.30) K/uL Imm/Tot Granulo (auto) 0.5 % Sodium 132 L (135-149) mmol/L Potassium 3.8 (3.6-5.1) mmol/L Chloride 99 (96-114) mmol/L Carbon Dioxide 22 (20-32) mmol/L Anion Gap 11 (7-15) mEq/L BUN 34 H (7-30) mg/dL Creatinine 1.8 H (0.5-1.5) mg/dL Estimated Creat Clear 34.91 Estimated GFR 39 ml/min Glucose 135 H (60-115) mg/dL Lactate 2.1 H (0.5-1.9) mmol/L Calcium 9.0 (8.4-10.6) mg/dL Total Bilirubin 0.7 (0.1-1.5) mg/dL AST 303 H (12-35) U/L ALT 213 H (4-50) U/L Alkaline Phosphatase 84 (40-150) U/L C-Reactive Protein 1.2 H (0.5-1.0) mg/dL NT-Pro-B Natriuret Pep 461 pg/mL Total Protein 7.3 (6.0-8.3) g/dL Albumin 4.4 (3.3-5.0) g/dL Procalcitonin 0.30 (<0.50) ng/mL Urine Color Yellow (Yellow) Urine Appearance Clear (Clear) Urine pH 5.5 (5.0-8.5) Ur Specific [place] 1.015 (1.000-1.030) Urine Protein 1+ A (Negative) Urine Glucose (UA) Negative (Negative) Urine Ketones 1+ A (Negative) Urine Blood Negative (Negative) Urine Nitrite Negative (Negative) Urine Bilirubin 1+ A (Negative) Urine Urobilinogen 0.2 (0.2-1.0) Ur Leukocyte Esterase Negative (Negative) Urine RBC 0-2 (0-2) Urine WBC 0-2 (0-5) Ur Squamous Epith Cells Few (None-Few) Urine Bacteria None (None) Ethyl Alcohol < 0.01 L (0.01-0.03) % SARS-CoV-2 (PCR) Negative SARS-CoV-2 (Negative) Influenza Type A (PCR) Negative PCR FLU A (Negative) Influenza Type B (PCR) Negative PCR FLU B (Negative) RSV (PCR) Negative PCR RSV (Negative) POC Troponin I 0.00 L (0.01-0.04) ng/ml 06/28/24 Range/Units 09:58 WBC (4.50-11.00) K/uL RBC (4.30-5.90) m/uL Hgb (13.5-17.5) gm/dL Hct (37.0-53.0) % MCV (80-100) fL MCH (26-34) pg MCHC (32-36) gm/dL RDW Coeff of Shannan (11.5-15.5) % Plt Count (140-440) K/uL Neut % (Auto) (42.0-72.0) % Lymph % (Auto) (20-44) % [place] % (Auto) (0.0-11.0) % Eos % (Auto) (0.0-7.0) % Baso % (Auto) (0.0-3.0) % Neut # (Auto) (1.7-7.0) K/uL Lymph # (Auto) (0.90-2.90) K/uL [place] # (Auto) (0.00-0.90) K/UL Eos # (Auto) (0.00-0.50) K/uL Baso # (Auto) (0.00-0.30) K/uL Abs Immat Gran (auto) (0.00-0.30) K/uL Imm/Tot Granulo (auto) % Sodium (135-149) mmol/L Potassium (3.6-5.1) mmol/L Chloride (96-114) mmol/L Carbon Dioxide (20-32) mmol/L Anion Gap (7-15) mEq/L BUN (7-30) mg/dL Creatinine (0.5-1.5) mg/dL Estimated Creat Clear Estimated GFR ml/min Glucose (60-115) mg/dL Lactate 3.7 H (0.5-1.9) mmol/L Calcium (8.4-10.6) mg/dL Total Bilirubin (0.1-1.5) mg/dL AST (12-35) U/L ALT (4-50) U/L Alkaline Phosphatase (40-150) U/L C-Reactive Protein (0.5-1.0) mg/dL NT-Pro-B Natriuret Pep pg/mL Total Protein (6.0-8.3) g/dL Albumin (3.3-5.0) g/dL Procalcitonin (<0.50) ng/mL Urine Color (Yellow) Urine Appearance (Clear) Urine pH (5.0-8.5) Ur Specific [place] (1.000-1.030) Urine Protein (Negative) Urine Glucose (UA) (Negative) Urine Ketones (Negative) Urine Blood (Negative) Urine Nitrite (Negative) Urine Bilirubin (Negative) Urine Urobilinogen (0.2-1.0) Ur Leukocyte Esterase (Negative) Urine RBC (0-2) Urine WBC (0-5) Ur Squamous Epith Cells (None-Few) Urine Bacteria (None) Ethyl Alcohol (0.01-0.03) % SARS-CoV-2 (PCR) (Negative) Influenza Type A (PCR) (Negative) Influenza Type B (PCR) (Negative) RSV (PCR) (Negative) POC Troponin I (0.01-0.04) ng/ml <Elva Panda MD - Last Filed: 06/29/24 18:53> Lab Results 06/28/24 06/28/24 06/28/24 Range/Units 07:35 07:45 09:30 WBC 9.20 (4.50-11.00) K/uL RBC 3.40 L (4.30-5.90) m/uL Hgb 11.5 L (13.5-17.5) gm/dL Hct 34.7 L (37.0-53.0) % MCV 102 H (80-100) fL MCH 34 (26-34) pg MCHC 33 (32-36) gm/dL RDW Coeff of Shannan 12.4 (11.5-15.5) % Plt Count 178 (140-440) K/uL Neut % (Auto) 71.9 (42.0-72.0) % Lymph % (Auto) 17.9 L (20-44) % [place] % (Auto) 8.0 (0.0-11.0) % Eos % (Auto) 1.2 (0.0-7.0) % Baso % (Auto) 0.5 (0.0-3.0) % Neut # (Auto) 6.60 (1.7-7.0) K/uL Lymph # (Auto) 1.60 (0.90-2.90) K/uL [place] # (Auto) 0.70 (0.00-0.90) K/UL Eos # (Auto) 0.11 (0.00-0.50) K/uL Baso # (Auto) 0.05 (0.00-0.30) K/uL Abs Immat Gran (auto) 0.05 (0.00-0.30) K/uL Imm/Tot Granulo (auto) 0.5 % Sodium 132 L (135-149) mmol/L Potassium 3.8 (3.6-5.1) mmol/L Chloride 99 (96-114) mmol/L Carbon Dioxide 22 (20-32) mmol/L Anion Gap 11 (7-15) mEq/L BUN 34 H (7-30) mg/dL Creatinine 1.8 H (0.5-1.5) mg/dL Estimated Creat Clear 34.91 Estimated GFR 39 ml/min Glucose 135 H (60-115) mg/dL Lactate 2.1 H (0.5-1.9) mmol/L Calcium 9.0 (8.4-10.6) mg/dL Total Bilirubin 0.7 (0.1-1.5) mg/dL AST 303 H (12-35) U/L ALT 213 H (4-50) U/L Alkaline Phosphatase 84 (40-150) U/L C-Reactive Protein 1.2 H (0.5-1.0) mg/dL NT-Pro-B Natriuret Pep 461 pg/mL Total Protein 7.3 (6.0-8.3) g/dL Albumin 4.4 (3.3-5.0) g/dL Procalcitonin 0.30 (<0.50) ng/mL Urine Color Yellow (Yellow) Urine Appearance Clear (Clear) Urine pH 5.5 (5.0-8.5) Ur Specific [place] 1.015 (1.000-1.030) Urine Protein 1+ A (Negative) Urine Glucose (UA) Negative (Negative) Urine Ketones 1+ A (Negative) Urine Blood Negative (Negative) Urine Nitrite Negative (Negative) Urine Bilirubin 1+ A (Negative) Urine Urobilinogen 0.2 (0.2-1.0) Ur Leukocyte Esterase Negative (Negative) Urine RBC 0-2 (0-2) Urine WBC 0-2 (0-5) Ur Squamous Epith Cells Few (None-Few) Urine Bacteria None (None) Ethyl Alcohol < 0.01 L (0.01-0.03) % SARS-CoV-2 (PCR) Negative SARS-CoV-2 (Negative) Influenza Type A (PCR) Negative PCR FLU A (Negative) Influenza Type B (PCR) Negative PCR FLU B (Negative) RSV (PCR) Negative PCR RSV (Negative) POC Troponin I 0.00 L (0.01-0.04) ng/ml 06/28/24 Range/Units 09:58 WBC (4.50-11.00) K/uL RBC (4.30-5.90) m/uL Hgb (13.5-17.5) gm/dL Hct (37.0-53.0) % MCV (80-100) fL MCH (26-34) pg MCHC (32-36) gm/dL RDW Coeff of Shannan (11.5-15.5) % Plt Count (140-440) K/uL Neut % (Auto) (42.0-72.0) % Lymph % (Auto) (20-44) % Lincoln % (Auto) (0.0-11.0) % Eos % (Auto) (0.0-7.0) % Baso % (Auto) (0.0-3.0) % Neut # (Auto) (1.7-7.0) K/uL Lymph # (Auto) (0.90-2.90) K/uL Lincoln # (Auto) (0.00-0.90) K/UL Eos # (Auto) (0.00-0.50) K/uL Baso # (Auto) (0.00-0.30) K/uL Abs Immat Gran (auto) (0.00-0.30) K/uL Imm/Tot Granulo (auto) % Sodium (135-149) mmol/L Potassium (3.6-5.1) mmol/L Chloride (96-114) mmol/L Carbon Dioxide (20-32) mmol/L Anion Gap (7-15) mEq/L BUN (7-30) mg/dL Creatinine (0.5-1.5) mg/dL Estimated Creat Clear Estimated GFR ml/min Glucose (60-115) mg/dL Lactate 3.7 H (0.5-1.9) mmol/L Calcium (8.4-10.6) mg/dL Total Bilirubin (0.1-1.5) mg/dL AST (12-35) U/L ALT (4-50) U/L Alkaline Phosphatase (40-150) U/L C-Reactive Protein (0.5-1.0) mg/dL NT-Pro-B Natriuret Pep pg/mL Total Protein (6.0-8.3) g/dL Albumin (3.3-5.0) g/dL Procalcitonin (<0.50) ng/mL Urine Color (Yellow) Urine Appearance (Clear) Urine pH (5.0-8.5) Ur Specific [place] (1.000-1.030) Urine Protein (Negative) Urine Glucose (UA) (Negative) Urine Ketones (Negative) Urine Blood (Negative) Urine Nitrite (Negative) Urine Bilirubin (Negative) Urine Urobilinogen (0.2-1.0) Ur Leukocyte Esterase (Negative) Urine RBC (0-2) Urine WBC (0-5) Ur Squamous Epith Cells (None-Few) Urine Bacteria (None) Ethyl Alcohol (0.01-0.03) % SARS-CoV-2 (PCR) (Negative) Influenza Type A (PCR) (Negative) Influenza Type B (PCR) (Negative) RSV (PCR) (Negative) POC Troponin I (0.01-0.04) ng/ml <Christian Killian MD - Last Filed: 06/28/24 12:01> ECG Data Attestation: I personally reviewed and interpreted this ECG as follows: <Elva Panda MD - Last Filed: 06/29/24 18:53> Prior ECG tracings: not available for review <Elva Panda MD - Last Filed: 06/29/24 18:53> Interpretation: Normal sinus rhythm, rate of 99. Normal axis and intervals. Good R-wave progression, no ST or T-wave abnormalities. Normal EKG. <Elva Panda MD - Last Filed: 06/29/24 18:53> Discharge Plan Discharge Clinical Impression: Dizziness, Anemia, Alcohol abuse, Abnormal LFTs, Renal insufficiency <Elva Panda MD - Last Filed: 06/29/24 18:53> Patient Disposition: Home, Self-Care <Elva Panda MD - Last Filed: 06/29/24 18:53> Condition: Stable <Elva Panda MD - Last Filed: 06/29/24 18:53> Instructions: Abuse of Alcohol (DC), Anemia (ED), Impaired Kidney Function (ED) <Elva Panda MD - Last Filed: 06/29/24 18:53> Additional Instructions: As we discussed, please come back to the ER right away if you have any problems-especially if you have more episodes of dizziness, worsening dizziness or weakness, bloody or black stools, abdominal pain, bloody vomiting, chest pain, or any problems. Abstain from alcohol. Try to drink plenty of fluids and he had a normal healthy diet. Follow-up with your regular doctor within 1 week to recheck your kidney function, liver function, hemoglobin levels and for further workup. <Elva Panda MD - Last Filed: 06/29/24 18:53> Prescriptions: No Action tamsulosin 0.4 mg capsule 0.8 mg PO QHS Qty: 60 11RF finasteride 5 mg tablet 5 mg PO QDAY Qty: 90 3RF lisinopril 20 mg tablet 20 mg PO DAILY Qty: 90 3RF <Elva Panda MD - Last Filed: 06/29/24 18:53> Follow Up/Referrals: Elia Cruz MD [Primary Care Provider] - <Elva Panda MD - Last Filed: 06/29/24 18:53> Stand Alone Forms: MyHealth Info Instructions <Elva Panda MD - Last Filed: 06/29/24 18:53>
--- NOTE | 2024-06-28 07:53 | CRLHL7_ITS ---
For Patients: As a result of the Century Cures Act, medical imaging exams and procedure reports are released immediately into your electronic medical record. You may view this report before your referring provider. If you have questions, please contact your health care provider. INDICATION: Dizziness TECHNIQUE: Noncontrast axial CT of the head. Coronal and sagittal reformats. Bone and soft tissue algorithms. COMPARISON: CT head 09/11/2015 FINDINGS: Prominence of the ventricles and cortical sulci, compatible with generalized cerebral volume loss. No midline shift or mass effect, hydrocephalus or herniation. Preserved reed-white matter differentiation. Unremarkable white matter attenuation. Midline structures appear within normal limits. Calcific intracranial atherosclerotic plaquing. Intact calvarium. Clear visualized paranasal sinuses and mastoid air cells. Bilateral lens implants. IMPRESSION: 1. No CT evidence of acute intracranial abnormality. 2. Mild generalized cerebral volume loss, slightly progressed relative to 2014. Please note that all CT scans at this facility use dose modulation, iterative reconstruction, and/or weight-based dosing when appropriate to reduce radiation dose to as low as reasonably achievable. Dictated by Caroline Lopez MD @ 06/28/2024 8:26:01 AM (Electronically Signed)
[2024-06-28 07:57] LABS: Lactate Sepsis w/Reflex* 2.1 mmol/L (0.5-1.9)
[2024-06-28 07:58] LABS: Basophils Absolute Auto 0.05 K/uL (0.00-0.30); Basophils Percent Auto 0.5 % (0.0-3.0); Eosinophils Absolute Auto 0.11 K/uL (0.00-0.50); Eosinophils Percent Auto 1.2 % (0.0-7.0); Hematocrit 34.7 % (37.0-53.0); Hemoglobin* 11.5 gm/dL (13.5-17.5); Immature Granulocytes Abs Auto 0.05 K/uL (0.00-0.30); Immature Granulocytes Pct Auto 0.5 %; Lymphocytes Percent Auto 17.9 % (20-44); Mean Corpuscular HGB Conc 33 gm/dL (32-36); Mean Corpuscular Hemoglobin 34 pg (26-34); Mean Corpuscular Volume 102 fL (80-100); Neutrophils Percent Auto 71.9 % (42.0-72.0); Platelet Count* 178 K/uL (140-440); RDW Coefficient of Variation % 12.4 % (11.5-15.5)
[2024-06-28 08:00] LABS: Slide Review Reflex No
[2024-06-28 08:13] LABS: Albumin* 4.4 g/dL (3.3-5.0); Chloride* 99 mmol/L (96-114); Sodium* 132 mmol/L (135-149)
[2024-06-28 08:14] LABS: Potassium* 3.8 mmol/L (3.6-5.1)
[2024-06-28 08:16] LABS: Alkaline Phosphatase* 84 U/L (40-150); Bilirubin Total* 0.7 mg/dL (0.1-1.5); Creatinine* 1.8 mg/dL (0.5-1.5); Est. Creatinine Clearance* 34.91; Estimated Glomerular Filt Rate 39 ml/min; Total Protein* 7.3 g/dL (6.0-8.3)
[2024-06-28 08:17] LABS: Blood Urea Nitrogen* 34 mg/dL (7-30); Glucose* 135 mg/dL (60-115)
[2024-06-28 08:19] LABS: C Reactive Protein* 1.2 mg/dL (0.5-1.0)
[2024-06-28 08:22] LABS: Aspartate Amino Transferase* 303 U/L (12-35)
[2024-06-28 08:23] LABS: Alanine Aminotransferase* 213 U/L (4-50); Anion Gap 11 mEq/L (7-15); Carbon Dioxide* 22 mmol/L (20-32)
--- OUTSIDE RECORDS SUMMARY | 2024-06-28 08:24 | XMS_ITS | Clinical Summary ---
Author Organization [facility] Address [address] [place] [address] Care Team Providers Care Hunting Sales Associate Name Role Phone None Reported, Pcp Primary Care Provider Unavail able Source Comments Patient records contain information from all sites at [facility]. For routine questions regarding patient records, call [phone] during business hours, M-F 8:00 AM - 5:00 PM Central Time. Record requests for emergency care only can be directed to [phone] at any time.[facility] Allergies Active Allergy Reactions Criticality Noted Date Comments Penicillin Rash 11/10/2023 Medications Medication Sig Dispensed Refills Start Date End Date Status lisinopriL (PRINIVIL,ZESTRIL) 20 mg tablet Take 20 mg by mouth daily. Pt does not know dose of med Active chlorthalidone (HYGROTON) 25 mg tablet Take 25 mg by mouth daily. Active finasteride (PROSCAR) 5 mg tablet Take 5 mg by mouth daily. Active tamsulosin (FLOMAX) 0.4 mg 24 hr capsule Take 0.4 mg by mouth daily. 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 Hyponatremia; Hypertension And Chronic Kidney Disease Stage 4; Other Specified Anemias Discharge Disposition: Home or Self Care from Last 3 Months Immunizations Name Administration Dates Next Due Influenza high dose QV(65 ye ars or older) (PF) 10/07/2023,09/09/2021,09/24/2020 PCV13 08/06/2018 PPSV23 04/04/2013 RZV (SHINGRIX) 03/26/2023,01/15/2023 Tdap 08/06/2018,03/15/2008 influenza vaccine quad (FLUZ ONE/FLUARIX) (6 months and older)(PF) 11/10/2022 Family History Medical History Relation Name Comments Cancer Father No Known Problems Mother Relation Name Status Comments Father Mother Social History Tobacco Use Types Packs/Day Years Used Date Smoking Tobacco: Former Cigarettes Smokeless Tobacco: Never Tobacco Cessation:Counseling Given: Yes Alcohol Use Standard Drinks/Week Comments Yes 21 (1 standard drink = 0.6 oz pu re alcohol) PHQ-2 Answer Date Recorded PHQ-2 Score 0 11/20/2023 Nutrition Answer Date Recorded Nutrition: EVOO Fat Source Unknown 11/10 Nutrition: Servings of Fruits/Vegetables per Day Not on file 11/10/2023 Dental Answer Date Recorded Dental: Regular Dentist Unknown 11/10/20 23 Sex and Gender Information Value Date Recorded Sex Assigned at Not on file Gender Identity Not on file Sexual Orientation Not on file Last Filed Vital Signs Vital Sign Reading Time Taken Comments Blood Pressure 90/60 11/20/2023 11:05 AM REGIONAL FORESTER recheck after visit~ Pulse 64 11/20/2023 10:27 AM REGIONAL FORESTER Temperature 36.6 ??C (97.9 ??F) 11/20/2023 1 0:27 AM REGIONAL FORESTER Respiratory Rate 17 11/20/2023 10:2 7 AM REGIONAL FORESTER Oxygen Saturation 99% 11/20/2023 10: 27 AM REGIONAL FORESTER Inhaled Oxygen Concentration - - Weight 68.9 kg (152 lb) 11/20/2023 10:2 7 AM REGIONAL FORESTER Height 175.3 cm (5' 9.02) 11/20/2023 1 0:27 AM REGIONAL FORESTER Body Mass Index 22.44 11/20/2023 10:27 AM REGIONAL FORESTER Plan of Treatment Health Maintenance Due Date Last Done Comments Hepatitis C Screening 1950 Visit: Medicare Annual Wellness 1950 Depression Screening (Annual PHQ-2) 11/30/2023 Fall Risk Screen (Annual) 11/30/2023 COVID-19 Vaccine (7 - 2023-2 4 season) 2024 11/02/2023, 11/10/2022, 03/19/2022, Additional history exists Influenza Vaccine (#1) 2024 , 11/10/2022, 09/09/2021, Additional history exists Office Visit for Blood Press ure Check / Re-check 11/20/2024 11/20/2023 Visit: Chronic Disease, age 18+ 11/20/2024 Creatinine Level (Kidney Fun ction Test) 06/06/2025 06/06/2024, 12/07/2023, 11/20/2023, Additional history exists Potassium Level 06/06/2025 06/06/2024, 06/2024, 11/20/2023, Additional history exists Sodium Level 06/06/2025 06/06/2024, 06/2024, 11/20/2023, Additional history exists DTaP,Tdap,and Td Vaccines (3 - Td or Tdap) 08/06/2028 08/06/2018, 03/15/2008 Pneumococcal vaccine (65+ years) Completed 08/06/20 18, 04/04/2013 Zoster Vaccines Completed 03/26/2023, 01/15/2023 Procedures Procedure Name Priority Date/Time Associated Diagnosis Comments CBC WITHOUT DIFFERENTIAL, B Routine 06/06/2024 9:07 AM CDT Other Specified Anemias BASIC METABOLIC PANEL, S/P Routine 06/06/2024 9:07 AM CDT Hyponatremia Hypertension And Chronic Kidney Disease Stage 4 from Last 3 Months Results * (ABNORMAL) CBC without Differential (06/06/2024 9:07 AM CDT) Hemoglobin 12.1(L) 13.2 - 16.6 g/dL 06/06/2024 10:10 AM CDT [facility] Hematocrit 33.9(L) 38.3 - 48.6 % 06/06/2024 10:10 AM CDT [facility] Erythrocytes 3.44(L) 4.35 - 5.65 x10(12)/L 06/06/2024 10:10 AM CDT [facility] MCV 98.5(H) 78.2 - 97.9 fL 06/06/2024 10:10 AM CDT [facility] RBC Distrib Width 12.8 11.8 - 14.5 % 06/06/2024 10:10 AM CDT [facility] Platelet Count 288 135 - 317 x10(9)/L 06/06/2024 10:10 AM CDT [facility] Leukocytes 7.8 3.4 - 9.6 x10(9)/L 06/06/2024 10:10 AM CDT [facility] Blood (Blood, Venous) 06/06/2024 9:07 AM CDT 06/06/2024 9:53 AM CDT Dionicio Betancourt M.D. LAB BLOOD ADD-ON [facility] [address] [place] [address], [facility] NPRG [facility] [address] [place] [address] * (ABNORMAL) Basic Metabolic Panel (06/06/2024 9:07 AM CDT) Potassium, P 4.9 3.6 - 5.2 mmol/L 06/06/2024 10:20 AM CDT NPR[facility] Sodium, P 128(L) 135 - 145 mmol/L 06/06/2024 10:20 AM CDT NPR[facility] Chloride, P 93(L) 98 - 107 mmol/L 06/06/2024 10:20 AM CDT NPR[facility] Bicarbonate, P 25 22 - 29 mmol/L 06/06/2024 10:20 AM CDT NPR[facility] Anion Gap, P 10 7 - 15 06/06/2024 10:20 AM CDT [facility] BUN (Blood Urea Nitrogen), P 18 8 - 24 mg/dL 06/06/2024 10:20 AM CDT [facility] Creatinine 1.18 0.74 - 1.35 mg/dL 06/06/2024 10:20 AM CDT NPR[facility] Estimated GFR (eGFR) 64 >=60 mL/min/BSA 06/06/2024 10:20 AM CDT NPR[facility] Comment: Estimated GFR calculated using the 2020 CKD_EPI creatinine equation. Calcium, Total, P 9.5 8.8 - 10.2 mg/dL 06/06/2024 10:20 AM CDT NPR[facility] Glucose, P 104 70 - 140 mg/dL 06/06/2024 10:20 AM CDT [facility] Blood (Blood, Venous) 06/06/2024 9:07 AM CDT 06/06/2024 9:53 AM CDT Dioniico Betancourt M.D. LAB BLOOD ADD-ON [facility] [address] [place] [address], [place] NPRG [facility] [address] [place] [address] from Last 3 Months Care Teams Hunting Sales Associate Relationship Specialty Start Date End Date None Reported, Pcp PCP - General Family Medicine 11/10/23
--- OUTSIDE RECORDS SUMMARY | 2024-06-28 08:24 | XMS_ITS ---
Author Organization [facility] Address [address] [place] [address] Care Team Providers Care Rotary Soil Stabilizer Operator Name Role Phone Unavailable Unavailable Unavailable Surgery Details Not on file Complications Check Surgery Details section. Procedure Estimated Blood Loss Check Surgery Details section. Procedure Findings Check Surgery Details section. Procedure Specimens Taken Check Surgery Details section.
--- OUTSIDE RECORDS SUMMARY | 2024-06-28 08:24 | XMS_ITS | Referral Summary ---
Author Organization [facility] Address [address] [place] [address] Care Team Providers Care Runner Out Name Role Phone None Reported, Pcp Primary Care Provider Unavail able Source Comments Patient records contain information from all sites at [facility]. For routine questions regarding patient records, call [phone] during business hours, M-F 8:00 AM - 5:00 PM Central Time. Record requests for emergency care only can be directed to [phone] at any time.[facility] Encounters Date Type Department Care Team Description 06/06/2024 8:52 AM CDT - 06/06/2024 11:59 PM CDT Hospital Encounter Department of Laboratory Medicine in [address] [address] Dionicio Betancourt M.D. Hyponatremia; Hypertension And Chronic Kidney Disease Stage 4; Other Specified Anemias Discharge Disposition: Home or Self Care from Last 3 Months Allergies Active Allergy Reactions Criticality Noted Date [...] Specified Anemias 11/20/2023 History Of Falling 11/20/2023 Immunizations Name Administration Dates Next Due Influenza high dose QV(65 ye ars or older) (PF) 10/07/2023,09/09/2021,09/24/2020 PCV13 08/06/2018 PPSV23 04/04/2013 RZV (SHINGRIX) 03/26/2023,01/15/2023 Tdap 08/06/2018,03/15/2008 influenza vaccine quad (FLUZ ONE/FLUARIX) (6 months and older)(PF) 11/10/2022 Social History Tobacco Use Types Packs/Day Years [...] Comments Blood Pressure 90/60 11/20/2023 11:05 AM TRANSIT OPERATOR recheck after visit~ Pulse 64 11/20/2023 10:27 AM TRANSIT OPERATOR Temperature 36.6 ??C (97.9 ??F) 11/20/2023 1 0:27 AM TRANSIT OPERATOR Respiratory Rate 17 11/20/2023 10:2 7 AM TRANSIT OPERATOR Oxygen Saturation 99% 11/20/2023 10: 27 AM TRANSIT OPERATOR Inhaled Oxygen Concentration - - Weight 68.9 kg (152 lb) 11/20/2023 10:2 7 AM TRANSIT OPERATOR Height 175.3 cm (5' 9.02) 11/20/2023 1 0:27 AM TRANSIT OPERATOR Body Mass Index 22.44 11/20/2023 10:27 AM TRANSIT OPERATOR Plan of Treatment Not on file Procedures Procedure Name Priority Date/Time Associated Diagnosis [...] CDT Dionicio Betancourt M.D. LAB BLOOD ADD-ON [facility] [address] [place] [address], [facility] NPRG [facility] [address] [place] [address] * (ABNORMAL) Basic Metabolic Panel (06/06/2024 9:07 [...] CDT Dionicio Betancourt M.D. LAB BLOOD ADD-ON [facility] [address] [place] [address], [facility] NPRG [facility] [address] [place] [address] from Last 3 Months Care Teams Runner Out Relationship Specialty Start Date End Date None Reported, Pcp PCP - General Family Medicine 11/10/23
--- OUTSIDE RECORDS SUMMARY | 2024-06-28 08:24 | XMS_ITS | Encounter Summary ---
Author Organization [facility] Address [address] [place] [address] Care Team Providers Care City Bailiff Name Role Phone None Reported, Pcp Primary Care Provider Unavail able Encounter Details Date Type Department Care Team (Latest Contact Info) Description 06/06/2024 8:52 AM CDT - 06/06/2024 11:59 PM CDT Hospital Encounter Department of Laboratory Medicine in [place], [place] [address] [place] [phone] Dionicio Betancourt M.D. [address] [place] [phone] Hyponatremia; Hypertension And Chronic Kidney Disease Stage 4; Other Specified Anemias Discharge Disposition: Home or Self Care Social History Tobacco Use Types Packs/Day Years Used Date Smoking Tobacco: Former Cigarettes Smokeless Tobacco: Never Alcohol Use Standard Drinks/Week Comments Yes 19 [...] on file Sexual Orientation Not on file documented as of this encounter Medications at Time of Discharge Medication Sig Dispensed Refills Start Date End Date chlorthalidone (HYGROTON) 25 mg tablet Take 25 mg by mouth daily. finasteride (PROSCAR) 5 mg tablet Take 5 mg by mouth daily. lisinopriL (PRINIVIL,ZESTRIL) 20 mg tablet Take 20 mg by mouth daily. Pt does not know dose of med tamsulosin (FLOMAX) 0.4 mg 24 hr capsule Take 0.4 mg by mouth daily. Daily at bedtime documented as of this encounter Plan of Treatment Not on file documented as of this encounter Procedures Procedure Name Priority Date/Time Associated Diagnosis Comments CBC WITHOUT DIFFERENTIAL, B Routine 06/06/2024 9:07 AM CDT Other Specified Anemias BASIC METABOLIC PANEL, S/P Routine 06/06/2024 9:07 AM CDT Hyponatremia Hypertension And Chronic Kidney Disease Stage 4 documented in this encounter Results * (ABNORMAL) CBC without Differential (06/06/2024 [...] CDT Dionicio Betancourt M.D. LAB BLOOD ADD-ON [facility] [address] [place] [address], [place] NPRG [facility] [address] [place] [address] * (ABNORMAL) Basic Metabolic Panel (06/06/2024 9:07 [...] 9:07 AM CDT 06/06/2024 9:53 AM CDT Dinoicio Betancourt M.D. LAB BLOOD ADD-ON [facility] [address] [place] [address], [facility] NPRG [facility] [address] [place] [address] documented in this encounter Visit Diagnoses Diagnosis Hyponatremia Hypertension And Chronic Kidney Disease Stage 4 Other Specified Anemias documented in this encounter Care Teams City Bailiff Relationship Specialty Start Date End Date None Reported, Pcp PCP - General Family Medicine 11/10/23 documented as of this encounter
--- OUTSIDE RECORDS SUMMARY | 2024-06-28 08:24 | XMS_ITS | Clinical Summary ---
Author Organization [facility] Address [place], [place] [address] Care Team Providers Care Logging Equipment Operator Name Role Phone Elia Cruz MD Primary Care Provider [phone] Allergies Active Allergy Reactions Criticality Noted Date Comments Penicillins Rash Unknown 05/05/2014 Medications Medication Sig Dispensed Refills Start Date End Date Status ciprofloxacin (CIPRO) 500 mg tabletIndications:KNO WN INFECTION Take 500 mg by mouth 2 times daily. Indications: KNOWN INFECTION Active METRONIDAZOLE (FLAGYL ORAL) Take by mouth. Active sodium chloride 0.9 % 0.9 % syrg Use 2 times daily as instructed. 300 mL 05/05/2014 Active Social History Tobacco Use Types Packs/Day Years Used Date Smoking Tobacco: Never Assessed Sex and Gender Information Value Date Recorded Sex Assigned at Not on file Gender Identity Not on file Sexual Orientation Not on file Obstetrics History Last Filed Vital Signs Vital Sign Reading Time Taken Comments Blood Pressure 138/95 05/05/2014 10:30 AM CDT Pulse 79 05/05/2014 10:30 AM CDT Temperature 37.1 ??C (98.8 ??F) 05/05/2014 7:48 AM CD T Respiratory Rate 14 05/05/2014 10:30 AM CDT Oxygen Saturation 100% 05/05/2014 10:30 AM CDT Inhaled Oxygen Concentration - - Weight 64.9 kg (143 lb) 05/05/2014 7:48 AM CDT Height 175.3 cm (5' 9.02) 05/05/2014 7:48 AM CD T Body Mass Index 21.11 05/05/2014 7:48 AM CDT Plan of Treatment Not on file Care Teams Logging Equipment Operator Relationship Specialty Start Date End Date Elia Cruz MD PCP - General Family Practice 05/05/14
[2024-06-28 08:25] LABS: Ethanol* < 0.01 % (0.01-0.03)
[2024-06-28 08:33] LABS: NT Pro B Type NatriureticPept* 461 pg/mL
[2024-06-28 08:41] LABS: PCR FLU A Negative PCR FLU A (Negative); PCR FLU B Negative PCR FLU B (Negative); PCR RSV Negative PCR RSV (Negative); SARS PCR* Negative SARS-CoV-2 (Negative)
[2024-06-28 09:42] LABS: Appearance Urine Clear (Clear); Bilirubin Urine 1+ (Negative); Blood Urine Negative (Negative); Color Urine Yellow (Yellow); Glucose Urine Negative (Negative); Ketones Urine 1+ (Negative); Leukocyte Esterase Urine Negative (Negative); Nitrite Urine Negative (Negative); Protein Urine 1+ (Negative); Specific Gravity Urine 1.015 (1.000-1.030); Urobilinogen Urine 0.2 (0.2-1.0); pH Urine 5.5 (5.0-8.5)
[2024-06-28 09:57] LABS: RBC Urine 0-2 (0-2); Squamous Epithelial Cell Urine Few (None-Few); WBC Urine 0-2 (0-5)
[2024-06-28 10:03] LABS: Lactate Sepsis 2 Hour 3.7 mmol/L (0.5-1.9)
== END 2024-06-28 10:30 | disposition home or self-care (01) ==
PROVIDERS: Family Medicine; Emergency Provider Emergency Medicine; PCP Family Medicine
DX: R42 Dizziness and giddiness (principal); D64.9 Anemia, unspecified; F10.10 Alcohol abuse, uncomplicated; N28.9 Disorder of kidney and ureter, unspecified; R94.5 Abnormal results of liver function studies
CPT/HCPCS: 36415; 70450; 80053; 81001; 81003; 82077; 83605; 83880; 84145; 84484; 85025; 86140; 87631; 93005; 96360; 96361; 99284; 99285; J7030

== ENCOUNTER 2024-07-20 09:22 | Outpatient (CLI) | payer MEDICARE, BC, SELFPAY ==
--- OUTSIDE RECORDS SUMMARY | 2024-07-20 09:26 | XMS_ITS | Clinical Summary ---
Author Organization [facility] Address [address] [place] [address] Care Team Providers Care Varnishing Machine Operator Name Role Phone None Reported, Pcp Primary Care Provider Unavail able Source Comments Patient records contain information from all sites at [facility]. For routine questions regarding patient records, call [phone] during business hours, M-F 8:00 AM - 5:00 PM Central Time. Record requests for emergency care only can be directed to [phone] at any time.[facility] Allergies Active Allergy Reactions Criticality Noted Date [...] Hospital Encounter Department of Laboratory Medicine in [place], [place] [address] [place] [address] Dionicio Betancourt M.D. Hyponatremia; Hypertension And Chronic [...] Comments Blood Pressure 90/60 11/20/2023 11:05 AM SLUDGE FILTRATION ATTENDANT recheck after visit~ Pulse 64 11/20/2023 10:27 AM SLUDGE FILTRATION ATTENDANT Temperature 36.6 ??C (97.9 ??F) 11/20/2023 1 0:27 AM SLUDGE FILTRATION ATTENDANT Respiratory Rate 17 11/20/2023 10:2 7 AM SLUDGE FILTRATION ATTENDANT Oxygen Saturation 99% 11/20/2023 10: 27 AM SLUDGE FILTRATION ATTENDANT Inhaled Oxygen Concentration - - Weight 68.9 kg (152 lb) 11/20/2023 10:2 7 AM SLUDGE FILTRATION ATTENDANT Height 175.3 cm (5' 9.02) 11/20/2023 1 0:27 AM SLUDGE FILTRATION ATTENDANT Body Mass Index 22.44 11/20/2023 10:27 AM SLUDGE FILTRATION ATTENDANT Plan of Treatment Health Maintenance Due Date Last Done Comments Hepatitis C Screening 1950 Visit: Medicare Annual Wellness 1950 Fall Risk Screen (Annual) 11/30/2023 COVID-19 Vaccine (7 - 2022-2 4 season) 2024 11/02/2023, 11/10/2022, 03/19/2022, Additional history exists Influenza Vaccine (#1) 2024 , 11/10/2022, 09/09/2021, Additional history exists Office Visit for Blood Press ure Check / Re-check 11/20/2024 11/20/2023 Visit: Chronic Disease, age 18+ 11/20/2024 Creatinine Level (Kidney Fun ction Test) 06/06/2025 06/06/2024, 12/07/2023, 11/20/2023, Additional history exists Potassium Level 06/06/2025 06/06/2024, 0 06/2024, 11/20/2023, Additional history exists Sodium Level 06/06/2025 06/06/2024, 0 06/2024, 11/20/2023, Additional history exists DTaP,Tdap,and Td Vaccines (3 - Td or Tdap) 08/06/2028 08/06/2018, 03/15/2008 Pneumococcal vaccine (65+ years) Completed 08/06/20, 04/04/2013 Zoster Vaccines Completed 03/26/2023, 01/15/2023 Depression Screening (Annual PHQ-2) Completed 11/20/2023 Procedures Procedure Name Priority Date/Time Associated Diagnosis [...] CDT Dionicio Betancourt M.D. LAB BLOOD ADD-ON [facility] [address] [place] [address], [facility] NPRG [facility] [address] [place] [address] * (ABNORMAL) Basic Metabolic Panel (06/06/2024 9:07 [...] CDT Dionicio Betancourt M.D. LAB BLOOD ADD-ON [facility] [address] [place] [address], [place] NPRG [facility] [address] [place] [address] from Last 3 Months Care Teams Varnishing Machine Operator Relationship Specialty Start Date End Date None Reported, Pcp PCP - General Family Medicine 11/10/23
--- OUTSIDE RECORDS SUMMARY | 2024-07-20 09:26 | XMS_ITS ---
Author Organization [facility] Address [address] [place] [address] Care Team Providers Care Garment Fitter Name Role Phone Unavailable Unavailable Unavailable Surgery Details Not on file Complications Check Surgery Details section. Procedure Estimated Blood Loss Check Surgery Details section. Procedure Findings Check Surgery Details section. Procedure Specimens Taken Check Surgery Details section.
--- OUTSIDE RECORDS SUMMARY | 2024-07-20 09:26 | XMS_ITS | Clinical Summary ---
Author Organization [employer] [facility] Address [place], [place] [address] Care Team Providers Care Mat Inspector Name Role Phone Elia Cruz MD Primary Care Provider [phone] Allergies Active Allergy Reactions Criticality Noted Date [...] of Treatment Not on file Care Teams Mat Inspector Relationship Specialty Start Date End Date Elia Cruz MD PCP - General Family Practice 05/05/14
--- OUTSIDE RECORDS SUMMARY | 2024-07-20 09:26 | XMS_ITS | Encounter Summary ---
Author Organization [facility] Address [address] [place] [address] Care Team Providers Care Professor Of Latin American Studies Name Role Phone None Reported, Pcp Primary Care Provider Unavail able Encounter Details Date Type Department Care Team (Latest Contact Info) Description 06/06/2024 8:52 AM CDT - 06/06/2024 11:59 PM CDT Hospital Encounter Department of Laboratory Medicine in [place], [place] [address] [place] [phone] Dionicio Betancourt M.D. [address] [place] [phone] Hyponatremia; Hypertension And Chronic Kidney Disease Stage [...] CDT Dionicio Betancourt M.D. LAB BLOOD ADD-ON [facility] [address] [place] [address], [place] NPRG [facility] [address] [place] [address] * (ABNORMAL) Basic Metabolic Panel (06/06/2024 9:07 [...] CDT Dionicio Betancourt M.D. LAB BLOOD ADD-ON [facility] [address] [place] [address], [facility] NPRG [facility] [address] [place] [address] documented in this encounter Visit Diagnoses Diagnosis Hyponatremia Hypertension And Chronic Kidney Disease Stage 4 Other Specified Anemias documented in this encounter Care Teams Professor Of Latin American Studies Relationship Specialty Start Date End Date None Reported, Pcp PCP - General Family Medicine 11/10/23 documented as of this encounter
--- OUTSIDE RECORDS SUMMARY | 2024-07-20 09:26 | XMS_ITS | Referral Summary ---
Author Organization [facility] Address [address] [place] [address] Care Team Providers Care Production Supply Equipment Tender Name Role Phone None Reported, Pcp Primary Care Provider Unavail able Source Comments Patient records contain information from all sites at [facility]. For routine questions regarding patient records, call [phone] during business hours, M-F 8:00 AM - 5:00 PM Central Time. Record requests for emergency care only can be directed to [phone] at any time.[facility] Encounters Date Type Department Care Team Description 06/06/2024 8:52 AM CDT - 06/06/2024 11:59 PM CDT Hospital Encounter Department of Laboratory Medicine in [address] [address] Dionicio Betancourt M.D. Hyponatremia; Hypertension And Chronic [...] Comments Blood Pressure 90/60 11/20/2023 11:05 AM CLIENT SERVICE SUPERVISOR recheck after visit~ Pulse 64 11/20/2023 10:27 AM CLIENT SERVICE SUPERVISOR Temperature 36.6 ??C (97.9 ??F) 11/20/2023 1 0:27 AM CLIENT SERVICE SUPERVISOR Respiratory Rate 17 11/20/2023 10:2 7 AM CLIENT SERVICE SUPERVISOR Oxygen Saturation 99% 11/20/2023 10: 27 AM CLIENT SERVICE SUPERVISOR Inhaled Oxygen Concentration - - Weight 68.9 kg (152 lb) 11/20/2023 10:2 7 AM CLIENT SERVICE SUPERVISOR Height 175.3 cm (5' 9.02) 11/20/2023 1 0:27 AM CLIENT SERVICE SUPERVISOR Body Mass Index 22.44 11/20/2023 10:27 AM CLIENT SERVICE SUPERVISOR Plan of Treatment Not on file Procedures [...] Dionicio Betancourt M.D. LAB BLOOD ADD-ON [facility] [address] [place] [address], [facility] NPRG [facility] [address] [place] [address] * (ABNORMAL) Basic Metabolic Panel (06/06/2024 9:07 [...] CDT Dionicio Betancourt M.D. LAB BLOOD ADD-ON [facility] [address] [place] [address], [facility] NPRG [facility] [address] [place] [address] from Last 3 Months Care Teams Production Supply Equipment Tender Relationship Specialty Start Date End Date None Reported, Pcp PCP - General Family Medicine 11/10/23
== END 2024-07-20 09:23 | disposition home or self-care (01) ==
PROVIDERS: PCP Family Medicine; Visit Provider Family Medicine
DX: D64.9 Anemia, unspecified (principal)
CPT/HCPCS: 80076

== ENCOUNTER 2024-09-05 07:00 | Outpatient (CLI) | payer MEDICARE, BC, SELFPAY ==
--- OUTSIDE RECORDS SUMMARY | 2024-09-05 07:03 | XMS_ITS | Encounter Summary ---
Author Organization [facility] Address [address] [place] [address] Care Team Providers Care Senior Oracle Soa Developer Name Role Phone None Reported, Pcp Primary Care Provider Unavail able Encounter Details Date Type Department Care Team (Latest Contact Info) Description 06/06/2024 8:52 AM CDT - 06/06/2024 11:59 PM CDT Hospital Encounter Department of Laboratory Medicine in [place], [place] [address] [place] [phone] Dionicio Betancourt M.D. [address] [place] [phone] Hyponatremia; Hypertension And Chronic Kidney Disease Stage [...] CDT Dionicio Betancourt M.D. LAB [facility]LOOD [facility] [address] [place] [address], [place] NPR[facility] [address] [place] [address] * (ABNORMAL) Basic Metabolic Panel (06/06/2024 9:07 [...] CDT Dionicio Betancourt M.D. LAB BLOOD ADD-ON [facility] [address] [place] [address], [facility] NPRG [facility] [address] [place] [address] documented in this encounter Visit Diagnoses Diagnosis Hyponatremia Hypertension And Chronic Kidney Disease Stage 4 Other Specified Anemias documented in this encounter Care Teams Senior Oracle Soa Developer Relationship Specialty Start Date End Date None Reported, Pcp PCP - General Family Medicine 11/10/23 documented as of this encounter
--- OUTSIDE RECORDS SUMMARY | 2024-09-05 07:03 | XMS_ITS | Continuity of Care Document ---
Author Organization [facility] Address [address] [address] [place] [address] Phone Care Team Providers Care Coat Checker Name Role Phone Candida Lind MD Unavailable [...] Diagnoses Date Provider Providers Copied on Encounter [facility], [address] [address], [place], [place], [id number], [place] tel:[phone] [facility] No Information 7 Lelo Tirado . [address] [place] [address], [id number] , [place]. tel:[phone] Offic/outpt [facility], [address] [address], [place], [place], [id number], [place] [phone] [facility] GI Symptoms or Concerns (chief complaint) Positive hepatitis C antibody testEssential (primary) hypertension Sep- 7 Lelo Tirado . [address] [facility], [address], [id number] , [place]. tel:[phone] Referring Provider: Kale Cruz MD C, [address] [facility] [facility] [place], [address]. tel:[phone] Family History Family Member Type Diagnosis Age At Onset Daughter Problem (finding) Alive and well Son Problem (finding) Maternal history of elisabeth betes mellitus Brother Problem (finding) Crohn's disease Payers Payer name Insurance type Covered democrat ID Authoriza tiirvin(s) [employer] [place] [employer] [place] [id number] Social History Type Description Quantity Date Captured [...]
--- OUTSIDE RECORDS SUMMARY | 2024-09-05 07:03 | XMS_ITS | Referral Summary ---
Author Organization [facility] Address [address] [place] [address] Care Team Providers Care Supervisor Carton And Can Supply Name Role Phone None Reported, Pcp Primary Care Provider Unavail able Source Comments Patient records contain information from all sites at [facility]. For routine questions regarding patient records, call [phone] during business hours, M-F 8:00 AM - 5:00 PM Central Time. Record requests for emergency care only can be directed to [phone] at any time.[facility] Encounters Date Type Department Care Team Description 06/06/2024 8:52 AM CDT - 06/06/2024 11:59 PM CDT Hospital Encounter Department of Laboratory Medicine in [address] [address] Dionicio Betancourt M.D. Hyponatremia; Hypertension And Chronic [...] Comments Blood Pressure 90/60 11/20/2023 11:05 AM PHOTO TECH recheck after visit~ Pulse 64 11/20/2023 10:27 AM PHOTO TECH Temperature 36.6 ??C (97.9 ??F) 11/20/2023 1 0:27 AM PHOTO TECH Respiratory Rate 17 11/20/2023 10:2 7 AM PHOTO TECH Oxygen Saturation 99% 11/20/2023 10: 27 AM PHOTO TECH Inhaled Oxygen Concentration - - Weight 68.9 kg (152 lb) 11/20/2023 10:2 7 AM PHOTO TECH Height 175.3 cm (5' 9.02) 11/20/2023 1 0:27 AM PHOTO TECH Body Mass Index 22.44 11/20/2023 10:27 AM PHOTO TECH Plan of Treatment Not on file Procedures [...] CDT Dionicio Betancourt M.D. LAB BLOOD ADD-ON [facility] [address] [place] [address], [facility] NPRG [facility] [address] [place] [address] * (ABNORMAL) Basic Metabolic Panel (06/06/2024 9:07 [...] CDT Dionicio Betancourt M.D. LAB BLOOD ADD-ON [facility] [address] [place] [address], [facility] NPRG [facility] [address] [place] [address] from Last 3 Months Care Teams Supervisor Carton And Can Supply Relationship Specialty Start Date End Date None Reported, Pcp PCP - General Family Medicine 11/10/23
--- OUTSIDE RECORDS SUMMARY | 2024-09-05 07:03 | XMS_ITS | Clinical Summary ---
Author Organization [facility] [facility] Address [place], [place] [address] Care Team Providers Care Transitional Care Manager Name Role Phone Elia Cruz MD Primary Care Provider [phone] Allergies Active Allergy Reactions Criticality Noted Date [...] of Treatment Not on file Care Teams Transitional Care Manager Relationship Specialty Start Date End Date Elia Cruz MD PCP - General Family Practice 05/05/14
--- OUTSIDE RECORDS SUMMARY | 2024-09-05 07:03 | XMS_ITS | Clinical Summary ---
Author Organization [facility] Address [address] [place] [address] Care Team Providers Care Lead Process Engineer Name Role Phone None Reported, Pcp Primary Care Provider Unavail able Source Comments Patient records contain information from all sites at [facility]. For routine questions regarding patient records, call [phone] during business hours, M-F 8:00 AM - 5:00 PM Central Time. Record requests for emergency care only can be directed to [phone] at any time.[facility] Allergies Active Allergy Reactions Criticality Noted Date [...] Hospital Encounter Department of Laboratory Medicine in [place], [place] [address] [place] [address] Dionicio Betancourt M.D. Hyponatremia; Hypertension And Chronic [...] Comments Blood Pressure 90/60 11/20/2023 11:05 AM SWEEP PRESS OPERATOR recheck after visit~ Pulse 64 11/20/2023 10:27 AM SWEEP PRESS OPERATOR Temperature 36.6 ??C (97.9 ??F) 11/20/2023 1 0:27 AM SWEEP PRESS OPERATOR Respiratory Rate 17 11/20/2023 10:2 7 AM SWEEP PRESS OPERATOR Oxygen Saturation 99% 11/20/2023 10: 27 AM SWEEP PRESS OPERATOR Inhaled Oxygen Concentration - - Weight 68.9 kg (152 lb) 11/20/2023 10:2 7 AM SWEEP PRESS OPERATOR Height 175.3 cm (5' 9.02) 11/20/2023 1 0:27 AM SWEEP PRESS OPERATOR Body Mass Index 22.44 11/20/2023 10:27 AM SWEEP PRESS OPERATOR Plan of Treatment Health Maintenance Due Date Last Done Comments Hepatitis C Screening 1950 Visit: Medicare Annual Wellness 1950 RSV vaccine - (32-3 6 weeks) or 60+ years (1 - 1-dose 75+ series) 01/28/2023 Depression Screening (Annual PHQ-2) 11/30/2023 Fall Risk Screen (Annual) 11/30/2023 COVID-19 Vaccine (7 - 2023-2 5 season) 2024 11/02/2023, 11/10/2022, 03/19/2022, Additional history exists Influenza Vaccine (#1) 2024 , 11/10/2022, 09/09/2021, Additional history exists Office Visit for Blood Press ure Check / Re-check 11/20/2024 11/20/2023 Visit: Chronic Disease, age 18+ 11/20/2024 Creatinine Level (Kidney Fun ction Test) 06/06/2025 06/06/2024, 12/07/2023, 11/20/2023, Additional history exists Potassium Level 06/06/2025 06/06/2024, /0 06/2024, 11/20/2023, Additional history exists Sodium Level 06/06/2025 06/06/2024, 01/0 06/2024, 11/20/2023, Additional history exists DTaP,Tdap,and Td Vaccines (3 - Td or Tdap) 08/06/2028 08/06/2018, 03/15/2008 Pneumococcal vaccine (65+ years) Completed 08/06/20, 04/04/2013 Zoster Vaccines Completed 03/26/2023, 01/15/2023 Procedures [...] LAB BLOOD ADD-ON [facility] [address] [place] [address], [facility] NPRG [facility] [address] [place] [address] * (ABNORMAL) Basic Metabolic Panel (06/06/2024 9:07 [...] LAB BLOOD ADD-ON [facility] [address] [place] [address], [facility] NPRG [facility] [address] [place] [address] from Last 3 Months Care Teams Lead Process Engineer Relationship Specialty Start Date End Date None Reported, Pcp PCP - General Family Medicine 11/10/23
--- OUTSIDE RECORDS SUMMARY | 2024-09-05 07:03 | XMS_ITS ---
Author Organization [facility] Address [address] [place] [address] Care Team Providers Care Building Equipment Operator Name Role Phone Unavailable Unavailable Unavailable Surgery Details Not on file Complications Check Surgery Details section. Procedure Estimated Blood Loss Check Surgery Details section. Procedure Findings Check Surgery Details section. Procedure Specimens Taken Check Surgery Details section.
--- NOTE | 2024-09-05 07:15 | CRLHL7_ITS ---
For Patients: As a result of the Century Cures Act, medical imaging exams and procedure reports are released immediately into your electronic medical record. You may view this report before your referring provider. If you have questions, please contact your health care provider. INDICATION: RUQ pain, elevated LFTs COMPARISON: CT 03/01/2017 TECHNIQUE: Real time reed scale imaging and color Doppler analysis was performed of the right upper quadrant. FINDINGS: The liver parenchyma is coarsened and increased in echotexture. No intrahepatic mass. There is a normal appearance of the hepatic IVC and proximal abdominal aorta. There is no evidence of ascites. The gallbladder is of normal size and there as an echogenic stone present along with mild layering sludge. The gallbladder wall measures 2 mm in thickness. The common bile duct is of normal size and measures 4 mm in diameter at the level of the faith hepatis. The pancreas is not well visualized. The right kidney measures 10.2 cm in length. Heterogeneous somewhat ill-defined masslike area adjacent to the right kidney measures 2.6 x 2.1 x 2.1 cm. IMPRESSION: Indeterminate heterogeneous masslike area associated with the right kidney measures 2.[address] abdomen and pelvis with contrast recommended. Hepatic steatosis. Cholelithiasis Dictated by Ryan Pulido MD @ 09/05/2024 9:36:37 AM (Electronically Signed)
== END 2024-09-05 07:01 | disposition home or self-care (01) ==
LOC: US 07:01
PROVIDERS: PCP Family Medicine; Visit Provider Family Medicine
DX: R10.11 Right upper quadrant pain (principal); N28.89 Other specified disorders of kidney and ureter; K76.0 Fatty (change of) liver, not elsewhere classified; K80.20 Calculus of gallbladder without cholecystitis without obstruction; R79.89 Other specified abnormal findings of blood chemistry; K70.10 Alcoholic hepatitis without ascites
CPT/HCPCS: 76705

== ENCOUNTER 2024-09-07 08:40 | Outpatient (CLI) | payer MEDICARE, BC, SELFPAY ==
--- OUTSIDE RECORDS SUMMARY | 2024-09-09 09:37 | XMS_ITS | Clinical Summary ---
Author Organization [employer] [facility] Address [place], [place] [address] Care Team Providers Care Stock Order Lister Name Role Phone Elia Cruz MD Primary Care Provider [phone] Allergies Active Allergy Reactions Criticality Noted Date [...] of Treatment Not on file Care Teams Stock Order Lister Relationship Specialty Start Date End Date Elia Cruz MD PCP - General Family Practice 05/05/14
--- OUTSIDE RECORDS SUMMARY | 2024-09-09 09:37 | XMS_ITS | Encounter Summary ---
Author Organization [facility] Address [address] [place] [address] Care Team Providers Care Ice House Supervisor Name Role Phone None Reported, Pcp Primary Care Provider Unavail able Encounter Details Date Type Department Care Team (Latest Contact Info) Description 06/06/2024 8:52 AM CDT - 06/06/2024 11:59 PM CDT Hospital Encounter Department of Laboratory Medicine in [place], [place] [address] [place] [phone] Dionicio Betancourt M.D. [address] [place] [phone] Hyponatremia; Hypertension And Chronic Kidney Disease Stage [...] CDT Dionicio Betancourt M.D. LAB BLOOD ADD-ON [facility] [address] [place] [address], [place] NPRG [facility] [address] [place] [address] * (ABNORMAL) Basic Metabolic Panel (06/06/2024 9:07 [...] CDT Dionicio Betancourt M.D. LAB BLOOD ADD-ON [facility] [address] [place] [address], [facility] NPRG [facility] [address] [place] [address] documented in this encounter Visit Diagnoses Diagnosis Hyponatremia Hypertension And Chronic Kidney Disease Stage 4 Other Specified Anemias documented in this encounter Care Teams Ice House Supervisor Relationship Specialty Start Date End Date None Reported, Pcp PCP - General Family Medicine 11/10/23 documented as of this encounter
--- OUTSIDE RECORDS SUMMARY | 2024-09-09 09:37 | XMS_ITS | Clinical Summary ---
Author Organization [facility] Address [address] [place] [address] Care Team Providers Care Molded Goods Spot Picker Name Role Phone None Reported, Pcp Primary Care Provider Unavail able Source Comments Patient records contain information from all sites at [facility]. For routine questions regarding patient records, call [phone] during business hours, M-F 8:00 AM - 5:00 PM Central Time. Record requests for emergency care only can be directed to [phone] at any time.[facility] Allergies Active Allergy Reactions Criticality [...] Date Recorded Dental: Regular Dentist Unknown 11/10/20 Sex and Gender Information Value Date Recorded Sex Assigned at Not on file Gender Identity Not on file Sexual Orientation Not on file Last Filed Vital Signs Vital Sign Reading Time Taken Comments Blood Pressure 90/60 11/20/2023 11:05 AM FIELD CLERK recheck after visit~ Pulse 64 11/20/2023 10:27 AM FIELD CLERK Temperature 36.6 ??C (97.9 ??F) 11/20/2023 1 0:27 AM FIELD CLERK Respiratory Rate 17 11/20/2023 10:2 7 AM FIELD CLERK Oxygen Saturation 99% 11/20/2023 10: 27 AM FIELD CLERK Inhaled Oxygen Concentration - - Weight 68.9 kg (152 lb) 11/20/2023 10:2 7 AM FIELD CLERK Height 175.3 cm (5' 9.02) 11/20/2023 1 0:27 AM FIELD CLERK Body Mass Index 22.44 11/20/2023 10:27 AM FIELD CLERK Plan of Treatment Health Maintenance Due Date Last Done Comments Hepatitis C Screening 1950 Visit: Medicare Annual Wellness 1950 RSV vaccine - (32-3 6 weeks) or 60+ years (1 - 1-dose 75+ series) 01/28/2023 Depression Screening (Annual PHQ-2) 11/30/2023 Fall Risk Screen (Annual) 11/30/2023 COVID-19 Vaccine (2023-2 5 season) 2024 11/02/2023, 11/10/2022, 03/19/2022, Additional [...] Procedure Name Priority Date/Time Associated Diagnosis Comments BASIC METABOLIC PANEL, S/P Routine 06/06/2024 9:07 AM CDT Hyponatremia Hypertension And Chronic Kidney Disease Stage 4 from Last 3 Months or Most Recently Relevant to Health Maintenance Results * (ABNORMAL) Basic Metabolic Panel (06/06/2024 9:07 [...] CDT Dionicio Betancourt M.D. LAB BLOOD ADD-ON [facility] [address] [place] [address], [place] NPR[facility] [address] [place] [address] from Last 3 Months or Most Recently Relevant to Health Maintenance Care Teams Molded Goods Spot Picker Relationship Specialty Start Date End Date None Reported, Pcp PCP - General Family Medicine 11/10/23
--- OUTSIDE RECORDS SUMMARY | 2024-09-09 09:37 | XMS_ITS ---
Author Organization [facility] Address [address] [place] [address] Care Team Providers Care Cellar Pumper Name Role Phone Unavailable Unavailable Unavailable Surgery Details Not on file Complications Check Surgery Details section. Procedure Estimated Blood Loss Check Surgery Details section. Procedure Findings Check Surgery Details section. Procedure Specimens Taken Check Surgery Details section.
--- OUTSIDE RECORDS SUMMARY | 2024-09-09 09:37 | XMS_ITS | Referral Summary ---
Author Organization [facility] Address [address] [place] [address] Care Team Providers Care Bobcat Driver/Labor Name Role Phone None Reported, Pcp Primary Care Provider Unavail able Source Comments Patient records contain information from all sites at [facility]. For routine questions regarding patient records, call [phone] during business hours, M-F 8:00 AM - 5:00 PM Central Time. Record requests for emergency care only can be directed to [phone] at any time.[facility] Allergies Active Allergy Reactions Criticality Noted Date [...] Comments Blood Pressure 90/60 11/20/2023 11:05 AM SALES SPECIAL AGENT recheck after visit~ Pulse 64 11/20/2023 10:27 AM SALES SPECIAL AGENT Temperature 36.6 ??C (97.9 ??F) 11/20/2023 1 0:27 AM SALES SPECIAL AGENT Respiratory Rate 17 11/20/2023 10:2 7 AM SALES SPECIAL AGENT Oxygen Saturation 99% 11/20/2023 10: 27 AM SALES SPECIAL AGENT Inhaled Oxygen Concentration - - Weight 68.9 kg (152 lb) 11/20/2023 10:2 7 AM SALES SPECIAL AGENT Height 175.3 cm (5' 9.02) 11/20/2023 1 0:27 AM SALES SPECIAL AGENT Body Mass Index 22.44 11/20/2023 10:27 AM SALES SPECIAL AGENT Plan of Treatment Not on file Procedures [...] CDT Dionicio Betancourt M.D. LAB BLOOD ADD-ON [facility] [address] [place] [address], [place] NPR[facility] [address] [place] [address] from Last 3 Months or Most Recently Relevant to Health Maintenance Care Teams Bobcat Driver/Labor Relationship Specialty Start Date End Date None Reported, Pcp PCP - General Family Medicine 11/10/23
== END 2024-09-07 08:41 | disposition home or self-care (01) ==
LOC: NFLDREF 09-09 09:34
PROVIDERS: PCP Family Medicine; Referring Provider Family Medicine; Visit Provider Family Medicine
DX: I10 Essential (primary) hypertension (principal)
CPT/HCPCS: 80048

== ENCOUNTER 2024-09-20 07:36 | Outpatient (CLI) | payer MEDICARE, BC, SELFPAY ==
--- OUTSIDE RECORDS SUMMARY | 2024-09-20 07:38 | XMS_ITS | Referral Summary ---
Author Organization [facility] Address [address] [place] [address] Care Team Providers Care Cut Off Saw Set Up Operator Name Role Phone None Reported, Pcp Primary Care Provider Unavail able Source Comments Patient records contain information from all sites at [facility]. For routine questions regarding patient records, call [phone] during business hours, M-F 8:00 AM - 5:00 PM Central Time. Record requests for emergency care only can be directed to [phone] at any time.[facility] Allergies Active Allergy Reactions Criticality Noted Date Comments Penicillin Rash 11/10/2023 Medications lisinopriL (PRINIVIL,ZESTR IL) 20 mg tablet Take 20 mg by [...] Recorded Sex Assigned at Not on file Legal Sex Male 4:51 PM THINNER SPRAYER Gender Identity Not on file Sexual Orientation Not on file Last Filed Vital Signs Vital Sign Reading Time Taken Comments Blood Pressure 90/60 11/20/2023 11:05 AM THINNER SPRAYER recheck after visit~ Pulse 64 11/20/2023 10:27 AM THINNER SPRAYER Temperature 36.6 ??C (97.9 ??F) 11/20/2023 1 0:27 AM THINNER SPRAYER Respiratory Rate 17 11/20/2023 10:2 7 AM THINNER SPRAYER Oxygen Saturation 99% 11/20/2023 10: 27 AM THINNER SPRAYER Inhaled Oxygen Concentration - - Weight 68.9 kg (152 lb) 11/20/2023 10:2 7 AM THINNER SPRAYER Height 175.3 cm (5' 9.02) 11/20/2023 1 0:27 AM THINNER SPRAYER Body Mass Index 22.44 11/20/2023 10:27 AM THINNER SPRAYER Plan of Treatment Not on file Procedures [...] 9:07 AM CDT 06/06/2024 9:53 AM CDT us Dionicio Betancourt M.D. LAB BLOOD ADD-ON Final Result [facility] [address] [place] [address], [place] [facility] [address] [place] [address] from Last 3 Months or Most Recently Relevant to Health Maintenance Insurance MEDICARE [facility] Care Teams Cut Off Saw Set Up Operator Relationship Specialty Start Date End Date None Reported, Pcp PCP - General Family Medicine 11/10/23
--- OUTSIDE RECORDS SUMMARY | 2024-09-20 07:38 | XMS_ITS ---
Author Organization [facility] Address [address] [place] [address] Care Team Providers Care Middle [employer] Technology Teacher Name Role Phone Unavailable Unavailable Unavailable Surgery Details Not on file Complications Check Surgery Details section. Procedure Estimated Blood Loss Check Surgery Details section. Procedure Findings Check Surgery Details section. Procedure Specimens Taken Check Surgery Details section.
--- OUTSIDE RECORDS SUMMARY | 2024-09-20 07:38 | XMS_ITS | Clinical Summary ---
Author Organization [facility] Address [address] [place] [address] Care Team Providers Care Avionics Supervisor Name Role Phone None Reported, Pcp Primary Care Provider Unavail able Source Comments Patient records contain information from all sites at [facility]. For routine questions regarding patient records, call [phone] during business hours, M-F 8:00 AM - 5:00 PM Central Time. Record requests for emergency care only can be directed to [phone] at any time.[facility] Allergies Active Allergy Reactions Criticality [...] on file Legal Sex Male 4:51 PM RADIOGRAPHY TECHNICIAN Gender Identity Not on file Sexual Orientation Not on file Last Filed Vital Signs Vital Sign Reading Time Taken Comments Blood Pressure 90/60 11/20/2023 11:05 AM RADIOGRAPHY TECHNICIAN recheck after visit~ Pulse 64 11/20/2023 10:27 AM RADIOGRAPHY TECHNICIAN Temperature 36.6 ??C (97.9 ??F) 11/20/2023 1 0:27 AM RADIOGRAPHY TECHNICIAN Respiratory Rate 17 11/20/2023 10:2 7 AM RADIOGRAPHY TECHNICIAN Oxygen Saturation 99% 11/20/2023 10: 27 AM RADIOGRAPHY TECHNICIAN Inhaled Oxygen Concentration - - Weight 68.9 kg (152 lb) 11/20/2023 10:2 7 AM RADIOGRAPHY TECHNICIAN Height 175.3 cm (5' 9.02) 11/20/2023 1 0:27 AM RADIOGRAPHY TECHNICIAN Body Mass Index 22.44 11/20/2023 10:27 AM RADIOGRAPHY TECHNICIAN Plan of Treatment Health Maintenance Due Date [...] CDT Dionicio Betancourt M.D. LAB BLOOD ADD-ON Final Result [facility] [address] [place] [address], [facility] [address] [place] [address] from Last 3 Months or Most Recently Relevant to Health Maintenance Insurance MEDICARE [facility] Care Teams Avionics Supervisor Relationship Specialty Start Date End Date None Reported, Pcp PCP - General Family Medicine 11/10/23
--- OUTSIDE RECORDS SUMMARY | 2024-09-20 07:39 | XMS_ITS | Clinical Summary ---
Author Organization [facility] Address [place], [place] [address] Care Team Providers Care Computer Systems Auditor Name Role Phone Elia Cruz MD Primary Care Provider [phone] Allergies Active Allergy Reactions Criticality Noted Date [...] of Treatment Not on file Care Teams Computer Systems Auditor Relationship Specialty Start Date End Date Elia Cruz MD PCP - General Family Practice 05/05/14
--- NOTE | 2024-09-20 08:00 | CRLHL7_ITS ---
For Patients: As a result of the Century Cures Act, medical imaging exams and procedure reports are released immediately into your electronic medical record. You may view this report before your referring provider. If you have questions, please contact your health care provider. INDICATION: Kidney mass TECHNIQUE: CT abdomen and pelvis acquired without and with 72 mL Isovue 370 IV contrast. Renal mass protocol. COMPARISON: 09/05/2024 ultrasound, 03/01/[address] FINDINGS: Lower chest: Unremarkable. Kidneys/ureters: No nephrolithiasis or hydronephrosis. No solid renal mass. The right kidney abnormality on the previous study was likely heterogeneity in the adjacent perirenal fat. Liver: Unremarkable. Normal in size and attenuation. No masses. Gallbladder and bile ducts: Unremarkable. No stones or inflammation. No biliary dilatation. Pancreas: Unremarkable. No mass or inflammation. Spleen: Unremarkable. Normal in size. No masses. Adrenal glands: Unremarkable. No nodules. GI tract: Anastomosis in the sigmoid. 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 Mesenteric arteries are patent. Lymph nodes: No lymphadenopathy. Omentum/Peritoneum/Abdominal Wall: Unremarkable. No sign of mass or infiltration. No free air or significant free fluid. Pelvis: Unremarkable. Bones: There is a mild T10 compression fracture that may be subacute. Chronic L1 compression fracture. Both are new from 2017. IMPRESSION: 1. No renal mass. Ultrasound finding was likely heterogeneity in the perirenal fat. 2. Probably subacute T10 compression fracture and chronic L1 compression fracture, both new from 2017. 3. 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 Please note that all CT scans at this facility use dose modulation, iterative reconstruction, and/or weight-based dosing when appropriate to reduce radiation dose to as low as reasonably achievable. Dictated by Duarte Yanes MD @ 09/21/2024 12:41:08 PM (Electronically Signed)
== END 2024-09-20 07:37 | disposition home or self-care (01) ==
LOC: CT 07:36
PROVIDERS: PCP Family Medicine; Visit Provider Family Medicine
DX: N28.89 Other specified disorders of kidney and ureter (principal); I71.9 Aortic aneurysm of unspecified site, without rupture; M48.56XS Collapsed vertebra, not elsewhere classified, lumbar region, sequela of fracture
CPT/HCPCS: 74178; Q9967

== ENCOUNTER 2025-03-31 15:58 | Emergency (ER) | payer MEDICARE, BC, SELFPAY ==
--- OUTSIDE RECORDS SUMMARY | 2025-03-31 16:00 | XMS_ITS | Clinical Summary ---
Author Organization [facility] Address [address] [place] [address] Care Team Providers Care Restaurant District Manager Name Role Phone None Reported, Pcp Primary Care Provider Unavail able Source Comments Patient records contain information from all sites at [facility]. For routine questions regarding patient records, call [phone] during business hours, M-F 8:00 AM - 5:00 PM Central Time. 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 Gender Identity Not on file Sexual Orientation Not on file Last Filed Vital Signs Vital Sign Reading Time Taken Comments Blood Pressure 90/60 11/20/2023 11:05 AM SHOE REPAIRER recheck after visit~ Pulse 64 11/20/2023 10:27 AM SHOE REPAIRER Temperature 36.6 C (97.9 F) 11/20/2023 10:27 AM SHOE REPAIRER Respiratory Rate 17 11/20/2023 10:2 7 AM SHOE REPAIRER Oxygen Saturation 99% 11/20/2023 10: 27 AM SHOE REPAIRER Inhaled Oxygen Concentration - - Weight 68.9 kg (152 lb) 11/20/2023 10:2 7 AM SHOE REPAIRER Height 175.3 cm (5' 9.02) 11/20/2023 1 0:27 AM SHOE REPAIRER Body Mass Index 22.44 11/20/2023 10:27 AM SHOE REPAIRER Plan of Treatment Health Maintenance Due Date Last Done Comments Hepatitis C Screening 1950 RSV vaccine - (32-36 weeks) or 60+ years (1 - 1-dose 75+ series) 01/28/2023 COVID-19 Vaccine ( season) 2024 11/02/2023, 11/10/2022, 03/19/2022, Additional history exists Influenza Vaccine (#1) 2024 , 11/10/2022, 09/09/2021, Additional history exists Office Visit for Blood Pressure Check / Re-check 11/20/2024 11/20/2023 Depression Screening (Annual PHQ-2) 11/30/2024 Fall Risk Screen (Annual) 11/30/2024 Creatinine Level (Kidney Function Test) 06/06/2025 06/06/2024, 12/07/2023, 11/20/2023, Additional history exists Potassium Level 06/06/2025 06/06/2024, 0 06/2024, 11/20/2023, Additional history exists Sodium Level 06/06/2025 06/06/2024, 0 06/2024, 11/20/2023, Additional history exists DTaP,Tdap,and Td Vaccines (3 - Td or Tdap) 08/06/2028 08/06/2018, 03/15/2008 Pneumococcal vaccine (50+ years) Completed 08/06/2018, 04/04/2013 Zoster Vaccines Completed 03/26/2023, 01/15/2023 IPV Vaccines Aged Out No longer eligi ble based on patient's age to complete this topic Procedures Procedure Name Priority Date/Time Associated Diagnosis [...] Betancourt M.D. LAB BLOOD ADD-ON Final Result [facility] [address] [place] [address], [place] [facility] [address] [place] [address] from Last 3 Months or Most Recently Relevant to Health Maintenance Insurance MEDICARE [facility] Care Teams Restaurant District Manager Relationship Specialty Start Date End Date None Reported, Pcp PCP - General Family Medicine 11/10/23
--- OUTSIDE RECORDS SUMMARY | 2025-03-31 16:01 | XMS_ITS | Clinical Summary ---
Author Organization [facility] Address [address] [place] [address] Care Team Providers Care Community Education Coordinator Name Role Phone Elia Cruz MD Primary Care Provider [phone] Allergies Active Allergy Reactions Criticality Noted Date Comments Penicillins Rash Unknown 05/05/2014 Medications ciprofloxacin (CIPRO) 500 mg tabletIndicatio ns:KNOWN INFECTION Take 500 mg by mouth 2 times daily. Indications: KNOWN INFECTION Active METRONIDAZOLE (FLAGYL ORAL) Take by mouth. A ctive sodium chloride 0.9 % 0.9 % syrg Use 2 times daily as instructed. 300 mL 05/05/2014 9:03 AM CDT 4 Active Social History Tobacco Use Types Packs/Day Years Used Date Smoking Tobacco: Never Assessed Sex and Gender Information Value Date Recorded Sex Assigned at Not on file Legal Sex Male 1:12 PM CDT Gender Identity Not on file Sexual Orientation Not on file Obstetrics History Last Filed Vital Signs Vital Sign Reading Time Taken Comments Blood Pressure 138/95 05/05/2014 10:30 AM CDT Pulse 79 05/05/2014 10:30 AM CDT Temperature 37.1 C (98.8 F) 05/05/2014 7:48 AM CDT Respiratory Rate 14 05/05/2014 10:30 AM CDT Oxygen Saturation 100% 05/05/2014 10:30 AM CDT Inhaled Oxygen Concentration - - Weight 64.9 kg (143 lb) 05/05/2014 7:48 AM CDT Height 175.3 cm (5' 9.02) 05/05/2014 7:48 AM CD T Body Mass Index 21.11 05/05/2014 7:48 AM CDT Plan of Treatment Not on file Insurance [id number] [place] [address] MEDICARE PART B HB ONLY [place] [place] BLUE HB ONLY Care Teams Community Education Coordinator Relationship Specialty Start Date End Date Elia Cruz MD PCP - General Family Practice 05/05/14
[2025-03-31 16:09] VITALS: BP 163/85; PULSE 96; RESP 18; TEMP 37.4; O2SAT 98; BMI 21.3
--- NOTE | 2025-03-31 16:29 | ED.CHESTPAIN ---
HPI - Chest Pain General Time Seen by Provider: 16:29 Date Seen: 03/31/25 Chief Complaint: Chest Pain Stated Complaint: left side chest pain Time Seen by Provider: 03/31/25 16:03 Source: patient and RN notes reviewed Mode of arrival: ambulatory Limitations: no limitations History of Present Illness HPI narrative: This 75-year-old male is coming in accompanied by his after he told her about left chest pain that is worsening. He is not exactly sure how long it has been there, maybe days but is certainly getting worse. He notes that the pain is there baseline but it is definitely worse with coughing, sneezing or breathing. He has not been sick with any illness, no cough or cold symptoms. He is not having any significant coughing. Denies any associated GI symptoms but does have chronic GERD. This is not worse at present. No fevers or chills. Denies any history of lung issues, no prior cardiac history. He is a nonsmoker. He is on lisinopril for hypertension. He does drink alcohol. He is aware that there was a grandfather with heart disease but no other more recent relatives. He does not take daily aspirin. He denies any associated neck pain with this, no pain into his arm, no associated nausea. He does note that his left 4th and 5th finger have felt numb and tingly but no pain. MD complaint: chest pain Related Data Previous Rx's ?Medication ?Instructions ?Recorded finasteride 5 mg tablet 5 mg PO QDAY #90 tabs 11/22/24 lisinopril 20 mg tablet 20 mg PO DAILY #90 tabs 11/22/24 tamsulosin 0.4 mg capsule 0.8 mg (2 x 0.4 mg) PO QHS #180 11/22/24 caps magnesium 200 mg tablet 400 mg (2 x 200 mg) PO DAILY 30 03/31/25 days #60 tabs Allergies Allergy/AdvReac Type Severity Reaction Status Date / Time penicillin V Allergy Mild Rash Verified 03/31/25 18:31 Review of Systems Status of ROS Reports: 6 or more systems reviewed and unremarkable except as noted in History and below [facility] Medical History Right kidney mass ?N28.89 - Other specified disorders of kidney and ureter (ICD-10) Distal radius fracture (08/08/23) ?S52.509A - Unspecified fracture of the lower end of unspecified radius, initial encounter for closed fracture (ICD-10) Colitis due to Clostridium difficile ?A04.72 - Enterocolitis due to Clostridium difficile, not specified as recurrent (ICD-10) Surgical History S/P partial colectomy ?Z90.49 - Acquired absence of other specified parts of digestive tract (ICD-10) Status post vasectomy (10/19/12) ?Z98.52 - Vasectomy status (ICD-10) Status post cataract extraction ?Z98.49 - Cataract extraction status, unspecified eye (ICD-10) Status post appendectomy ?Z90.49 - Acquired absence of other specified parts of digestive tract (ICD-10) Social History Narrative: alcohol abuse What is your current living situation?: I presently have a place to live Problems where you live: no known problems In the past 12 months, utilities in danger of being shut off: no In past 12 months, lack of transportation kept you from medical appts, meetings, work, or getting things needed for daily living: no In the past 12 mos, have been you worried that your food would run out before you had money to buy more?: never true In the past 12 mos, the food you bought just didn't last and you didn't have money to buy more?: never true Smoking Status: Former smoker What tobacco products do you use: cigarettes Smoking quit date/years: <= 15 years ago Do you use any of these nicotine containing products: None Second hand tobacco smoke exposure: No How often do you have a drink containing alcohol: monthly or less How often do you have six or more drinks on one occasion: Never AUDIT-C Alcohol total score: 1 Non-prescribed substance use: denies use How often does anyone, including family, friends and others, physically hurt you: never How often does anyone, including family, friends and others, insult or talk down to you: never How often does anyone, including family, friends and others, threaten you with harm: never How often does anyone, including family, friends and others, scream or curse at you: never service: No Exam Const Vital Signs, click to edit/add: Vital Signs - 24 hr 03/31/25 16:09 03/31/25 16:39 03/31/25 18:49 Temperature 99.3 F 97.6 F Pulse Rate [Pulse Oximeter] 96 87 Respiratory Rate 18 18 Blood Pressure [Right Upper Arm] 163/85 H 163/103 H Pulse Oximetry 98 98 96 Oxygen Delivery Method Room Air Room Air This 75-year-old male is alert, interactive, no apparent distress. Sclera have some injection to them but conjugate gaze, periorbital structures normal. Symmetrical facial function, speech is normal. Neck is supple, no adenopathy, no thyromegaly masses or nodules, no jugular venous distension. His able sit up, lungs are clear, good air entry, no wheeze or crackles. CV regular rate and rhythm, no murmur, normal S1-S2. Abdomen is soft, nontender, nondistended, no organomegaly, no rebound or guarding, no masses. He complains his left 5th and 4th finger with some decreased light touch sensation in comparison to the rest of his hand or in comparison to the right hand. 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 Strength throughout is arms is normal. He has full range of motion about the elbow. Documenting provider has reviewed patient's vital signs: yes Course Course ED Course: Have reviewed with them his baseline EKG does show some changes in the anterior precordial leads, did notify them that it is not showing active ischemia but seems to be changed from prior EKG from 2023. Will be on cardiac monitoring, pulse oximetry, will look for any arrhythmia or hypoxia while here. Will give him 324 mg aspirin. Prior platelet counts have been normal. He will get full complement of labs including a troponin, they are where that we will follow another 1 here. His symptoms have been days but sounds like it has been somewhat inter minute with pleuritic nature. Now his pain is there baseline always. Understand we will be getting a D-dimer, may need further imaging with CT if this is abnormal. He does not have pain that seems to be consistent with a dissection or aneurysm but still is a possibility. We discussed other possibilities like pleurisy or lung infection such as pneumonia. This certainly could be coronary ischemia. Baseline EKG is not showing changes like pericarditis. Reevaluation(s) Time of Reevaluation #1: 17:51 Reevaluation #1: Have reviewed with patient and his that his sodium and his magnesium are low. Have ordered 2 g IV magnesium and on normal saline maintenance at 75 mils per hour. Awaiting his troponin back. Will likely do further imaging but would like to see what his troponin is before I order CT imaging. Time of Reevaluation #2: 18:06 Reevaluation #2: Have reviewed that his D-dimer is elevated but his troponin is normal. We are going to proceed with chest CT PE protocol. Clinically I a.m. more concerned about underlying lung issues or pulmonary emboli, feel aneurysm or dissection are much less likely with his clinical picture at this time. He is drinking about 3-4 beers per day. We did discuss that this can lead to chronic low magnesium. His sodium was 128 last year, it is lower now. Time of Reevaluation #3: 19:53 Reevaluation #3: Patient is resting comfortably, watching TV. Have reviewed labs. There where that we are just waiting the follow-up troponin. If normal, plan will be to discharge to home. Discussed alcohol as offending agent likely contributing to his sodium and magnesium. We did review his chest CT and the pulmonary lesion. His has had pulmonary nodules, is versus it in dealing with this. Reviewed with her that they certainly could follow up with his primary and be directed to pulmonology or a lung nodules Clinic, do know that [place] has a [facility]. She went to [place] [facility] from the sounds of it, had her pulmonary nodules addressed there. Whatever works for them will be fine but he does need follow-up for this. Consultations Consultation #1: Have reviewed with our hospitalist, currently with his magnesium in his sodium, technically asymptomatic without any mental status changes, no nausea vomiting, no weakness, she feels he does not meet criteria for hospitalization. Awaiting follow-up troponin and if normal, will discharge to home for further outpatient management. Time: 19:43 Vital Signs Vital signs: Initial Vital Signs Temperature 99.3 F 03/31/25 16:09 Temperature Source Temporal Artery Scan 03/31/25 16:09 Pulse Rate 96 03/31/25 16:09 Respiratory Rate 18 03/31/25 16:09 Blood Pressure 163/85 H 03/31/25 16:09 Blood Pressure Mean 111 H 03/31/25 16:09 Pulse Oximetry 98 03/31/25 16:09 Oxygen Delivery Method Room Air 03/31/25 16:09 Vital Signs Temperature 99.3 F 03/31/25 16:09 Pulse Rate 96 03/31/25 16:09 Respiratory Rate 18 03/31/25 16:09 Blood Pressure 163/85 H 03/31/25 16:09 Pulse Oximetry 98 03/31/25 16:09 Oxygen Delivery Method Room Air 03/31/25 16:09 Temperature 97.6 F 03/31/25 18:49 Pulse Rate 87 03/31/25 18:49 Respiratory Rate 18 03/31/25 18:49 Blood Pressure 163/103 H 03/31/25 18:49 Pulse Oximetry 96 03/31/25 18:49 Oxygen Delivery Method Room Air 03/31/25 18:49 Medications Administered Medications: Generic Name Dose Route Start Last Admin Trade Name Freq PRN Reason Stop Dose Admin Sodium Chloride 1,000 mls @ 75 mls/hr 03/31/25 17:49 03/31/25 18:05 0.9 % Sodium Chloride 1000 Ml IV 75 mls/hr .[id number] PAVAN Administration Discontinued Medications Generic Name Dose Route Start Last Admin Trade Name Freq PRN Reason Stop Dose Admin Aspirin 324 mg 03/31/25 16:43 03/31/25 16:51 Aspirin 81 Mg Tab.Chew PO 03/31/25 16:44 324 mg ONCE ONE Administration Magnesium Sulfate 2 gm in 50 mls @ 25 mls/hr 03/31/25 17:49 03/31/25 18:08 Magnesium Iv IVPB 03/31/25 19:48 25 mls/hr ONCE ONE Administration MDM - Chest Pain Lab Data Attestation: I reviewed the patient's lab results. Labs: Lab Results 03/31/25 03/31/25 03/31/25 Range/Units 17:04 17:47 19:31 WBC 6.24 (4.50-11.00) K/uL RBC 2.85 L (4.30-5.90) m/uL Hgb 10.0 L (13.5-17.5) gm/dL Hct 28.7 L (37.0-53.0) % MCV 101 H (80-100) fL MCH 35 H (26-34) pg MCHC 35 (32-36) gm/dL RDW Coeff of Shannan 12.5 (11.5-15.5) % Plt Count 243 (140-440) K/uL Neut % (Auto) 66.4 (42.0-72.0) % Lymph % (Auto) 17.6 L (20-44) % Casey % (Auto) 13.3 H (0.0-11.0) % Eos % (Auto) 1.6 (0.0-7.0) % Baso % (Auto) 0.6 (0.0-3.0) % Neut # (Auto) 4.14 (1.7-7.0) K/uL Lymph # (Auto) 1.10 (0.90-2.90) K/uL Casey # (Auto) 0.80 (0.00-0.90) K/UL Eos # (Auto) 0.10 (0.00-0.50) K/uL Baso # (Auto) 0.04 (0.00-0.30) K/uL Abs Immat Gran (auto) 0.03 (0.00-0.30) K/uL Imm/Tot Granulo (auto) 0.5 % Absolute Retic 0.04 (0.03-0.08) # Percent Retic 1.3 (0.5-2.0) % Immature Retic Fraction 2.4 (2.3-13.4) % Retic Hgb Equivalent 35.3 H (29.0-35.0) pg INR 0.88 L (0.91-1.10) APTT 24 (23-33) Seconds D-Dimer Quant (PE/DVT) 1.02 H (0.00-0.50) ug/ml Sodium 125 L (135-149) mmol/L Potassium 4.5 (3.6-5.1) mmol/L Chloride 96 (96-114) mmol/L Carbon Dioxide 19 L (20-32) mmol/L Anion Gap 10 (7-15) mEq/L BUN 14 (7-30) mg/dL Creatinine 1.1 (0.5-1.5) mg/dL Estimated Creat Clear 51.96 Estimated GFR 69 ml/min Glucose 92 (60-115) mg/dL Lactate 1.0 (0.5-1.9) mmol/L Calcium 8.9 (8.4-10.6) mg/dL Magnesium 1.3 L (1.5-2.6) mg/dL Iron 61 (49-181) ug/dL TIBC 256 L (261-462) ug/dL % Saturation 24 (20-50) % Ferritin 169.0 (17.9-464.0) ng/mL Total Bilirubin 0.4 (0.1-1.5) mg/dL Direct Bilirubin 0.4 (0.0-0.5) mg/dL AST 31 (12-35) U/L ALT 13 (4-50) U/L Alkaline Phosphatase 75 (40-150) U/L Troponin I < 0.01 < 0.01 (0.01-0.04) ng/mL C-Reactive Protein < 0.5 L (0.5-1.0) mg/dL NT-Pro-B Natriuret Pep 590 pg/mL Total Protein 6.7 (6.0-8.3) g/dL Albumin 4.1 (3.3-5.0) g/dL Lipase 292 (23-300) U/L Ethyl Alcohol 0.01 (0.01-0.03) % Lab Acknowledgement Test Added Imaging Data Chest x-ray: Attestation: I have reviewed the pertinent imaging results. Radiologist's impression: Patient: VALENTINO CHAVIS Facility:?[facility] Patient ID:?[id number] Site Patient ID:?[id number]. Site :?[id number] Study:?XRay-Chest 1 view portable-03/31/2025 5:22:13 PM Ordering Physician:?Gokul Jo Final Report: INDICATION: Left chest pain, pleuritic TECHNIQUE: Chest radiograph 1 view COMPARISON: 06/23/2017 FINDINGS: The sensitivity and specificity of the exam are moderately limited by the patient`s body habitus. Mediastinum: The mediastinum is normal in appearance. The cardiac silhouette is at upper limits of normal in size. Lung: Both lungs are unremarkable in appearance. No sign of pleural effusion seen. No pneumothorax is identified. Bone and Soft tissue: Unremarkable for age. IMPRESSION: 1. No acute cardiopulmonary disease is seen. Dictated by Nicho Meeks MD @ 03/31/2025 5:39:38 PM Dictated by: Nicho Meeks MD @ 03/31/2025 17:39:44 (Electronic Signature) CT scan - chest: Attestation: I have reviewed the pertinent imaging results. Radiologist's impression: Facility:?[facility] Patient ID:?[id number] Site Patient ID:?[id number]. Site :?[id number] Study:?CT-Chest Angio PE Protocol WITH 95 CC'S ISOVUE 370-03/31/2025 6:37:55 PM Ordering Physician:?Gokul Jo Final Report: INDICATION: Dyspnea. Chest pain. TECHNIQUE: Multiplanar CT pulmonary angiogram was performed after the administration of 95 mL of Isovue 370 intravenous contrast. COMPARISON: Chest radiographs 03/31/2025 FINDINGS: Lower neck: The visualized thyroid is unremarkable. Cardiovascular: Contrast opacification of the pulmonary arterial tree is adequate. Heart size is normal. Thoracic aorta and pulmonary artery are normal in caliber. Moderate atherosclerotic calcifications of the aortic arch. No significant coronary arterial calcifications. No pulmonary embolus. Mediastinum and lymph nodes: Small hiatal hernia with evidence of reflux. No pathologic mediastinal or hilar lymphadenopathy by size criteria. Lungs: No focal consolidation. 1.8 cm right lower lobe nodule in the azygoesophageal recess (5:123). Dependent atelectasis. Linear bandlike opacification of the lung bases bilaterally, likely subsegmental atelectasis and/or scarring. Airways: The trachea remains patent and midline. Mild diffuse peribronchial wall thickening. Pleura: No pleural effusions or pneumothorax. Chest wall: Unremarkable. Prominent axillary lymph nodes that do not meet size criteria for lymphadenopathy. Bones: No acute osseous abnormalities. Mild degenerative changes of the thoracic spine. Upper abdomen: No acute findings in the visualized upper abdomen. No reflux of contrast material into the IVC. IMPRESSION: 1. No pulmonary embolus. No CT evidence of right heart strain. 2. 1.8 cm right lower lobe nodule, indeterminate. Recommend further evaluation with PET-CT and/or histologic tissue analysis. 3. Small hiatal hernia with evidence of reflux. Please note that all CT scans at this facility use dose modulation, iterative reconstruction, and/or weight-based dosing when appropriate to reduce radiation dose to as low as reasonably achievable. Dictated by Hari Fulton MD @ 03/31/2025 7:26:59 PM (Electronic Signature) ECG Data Attestation: I personally reviewed and interpreted this ECG as follows: (Normal sinus rhythm, 81 beats per minute. No active ischemia noted but poor R-wave progression in anterior precordial leads.) ECG interpretation date: 03/31/25 ECG interpretation time: 16:30 Prior ECG tracings: available for review (EKG from 06/28/2024 is normal sinus rhythm, normal EKG. Do not see the anterior precordial changes that are present today.) Interpretation: Follow-up EKG at 7:12 p.m. shows normal sinus rhythm, 86 beats per minute. Q-waves anterior precordial leads/poor R-wave progression but no active ischemia noted. No significant change. Discharge Plan Discharge Clinical Impression: Hyponatremia, Hypomagnesemia, Pulmonary nodule Patient Disposition: Home, Self-Care Condition: Stable Instructions: Hyponatremia (ED), Hypomagnesemia (ED), Chest Pain (ED) Additional Instructions: Need to follow up in clinic this next week. Do recommend having your primary care provider obtain an echo, consider cardiac stress testing. Basic metabolic panel should be rechecked next week as well as magnesium. Highly recommend cessation alcohol/beer. This is very likely responsible for the low sodium and magnesium. Take the magnesium tablets as prescribed. Need to take CT report to follow-up appointment in clinic, will need to be referred to specialist for further evaluation of the 1.8 cm right lower lobe nodule. It is not clear exactly what your chest pain is from, can try some Tylenol 1000 mg 3 times a day for discomfort. Recheck at follow-up this week in clinic. If you develop further concerns, have worsening symptoms, please seek re-evaluation. Activity Level: Activity as Tolerated Prescriptions: New magnesium 200 mg tablet 400 mg PO DAILY 30 Days Qty: 60 0RF No Action finasteride 5 mg tablet 5 mg PO QDAY Qty: 90 3RF lisinopril 20 mg tablet 20 mg PO DAILY Qty: 90 3RF tamsulosin 0.4 mg capsule 0.8 mg PO QHS Qty: 180 3RF Follow Up/Referrals: Elia Cruz MD [Primary Care Provider] - Stand Alone Forms: MyHealth Info Instructions
[2025-03-31 16:39] VITALS: O2SAT 98
--- NOTE | 2025-03-31 16:39 | CRLHL7_ITS ---
For Patients: As a result of the Cures Act, medical imaging exams and procedure reports are released immediately into your electronic medical record. You may view this report before your referring provider. If you have questions, please contact your health care provider. INDICATION: Left chest pain, pleuritic TECHNIQUE: Chest radiograph 1 view COMPARISON: 06/23/2017 FINDINGS: The sensitivity and specificity of the exam are moderately limited by the patient`s body habitus. Mediastinum: The mediastinum is normal in appearance. The cardiac silhouette is at upper limits of normal in size. Lung: Both lungs are unremarkable in appearance. No sign of pleural effusion seen. No pneumothorax is identified. Bone and Soft tissue: Unremarkable for age. IMPRESSION: 1. No acute cardiopulmonary disease is seen. Dictated by Nicho Meeks MD @ 03/31/2025 5:39:38 PM Dictated by: Nicho Meeks MD @ 03/31/2025 17:39:44 (Electronically Signed)
--- OUTSIDE RECORDS SUMMARY | 2025-03-31 16:48 | XMS_ITS | Clinical Summary ---
Author Organization [facility] Address [address] [place] [address] Care Team Providers Care Relish Blender Name Role Phone None Reported, Pcp Primary Care Provider Unavail able Source Comments Patient records contain information from all sites at [facility]. For routine questions regarding patient records, call [phone] during business hours, M-F 8:00 AM - 5:00 PM Central Time. Record requests for emergency care only can be directed to [phone] at any time.[facility] Allergies Active Allergy Reactions Criticality Noted [...] on file Legal Sex Male 4:51 PM PROCESS EXCELLENCE MANAGER Gender Identity Not on file Sexual Orientation Not on file Last Filed Vital Signs Vital Sign Reading Time Taken Comments Blood Pressure 90/60 11/20/2023 11:05 AM PROCESS EXCELLENCE MANAGER recheck after visit~ Pulse 64 11/20/2023 10:27 AM PROCESS EXCELLENCE MANAGER Temperature 36.6 C (97.9 F) 11/20/2023 10:27 AM PROCESS EXCELLENCE MANAGER Respiratory Rate 17 11/20/2023 10:2 7 AM PROCESS EXCELLENCE MANAGER Oxygen Saturation 99% 11/20/2023 10: 27 AM PROCESS EXCELLENCE MANAGER Inhaled Oxygen Concentration - - Weight 68.9 kg (152 lb) 11/20/2023 10:2 7 AM PROCESS EXCELLENCE MANAGER Height 175.3 cm (5' 9.02) 11/20/2023 1 0:27 AM PROCESS EXCELLENCE MANAGER Body Mass Index 22.44 11/20/2023 10:27 AM PROCESS EXCELLENCE MANAGER Plan of Treatment Health Maintenance Due Date [...] Betancourt M.D. LAB BLOOD ADD-ON Final Result [facility] [address] [place] [address], [place] NPR[place] [facility] [address] [place] [address] from Last 3 Months or Most Recently Relevant to Health Maintenance Insurance MEDICARE [facility] Care Teams Relish Blender Relationship Specialty Start Date End Date None Reported, Pcp PCP - General Family Medicine 11/10/23
--- OUTSIDE RECORDS SUMMARY | 2025-03-31 16:48 | XMS_ITS | Clinical Summary ---
Author Organization [facility] Address [address] [place] [id number] Care Team Providers Care Mortgage Loan Counselor Name Role Phone Elia Cruz MD Primary Care Provider [phone] Allergies Active Allergy Reactions Criticality Noted Date [...] file Insurance [id number] [place] [id number] MEDICARE PART B HB ONLY [place] ONLY Care Teams Mortgage Loan Counselor Relationship Specialty Start Date End Date Elia Cruz MD PCP - General Family Practice 05/05/14
[2025-03-31] MEDS: ASPIRIN 81 MG TAB.CHEW 324 MG PO (16:51)
[2025-03-31 17:16] LABS: Basophils Absolute Auto 0.04 K/uL (0.00-0.30); Basophils Percent Auto 0.6 % (0.0-3.0); Eosinophils Percent Auto 1.6 % (0.0-7.0); Hematocrit 28.7 % (37.0-53.0); Immature Granulocytes Abs Auto 0.03 K/uL (0.00-0.30); Immature Granulocytes Pct Auto 0.5 %; Lymphocytes Percent Auto 17.6 % (20-44); Mean Corpuscular HGB Conc 35 gm/dL (32-36); Mean Corpuscular Hemoglobin 35 pg (26-34); Mean Corpuscular Volume 101 fL (80-100); Monocytes Percent Auto 13.3 % (0.0-11.0); Neutrophils Absolute Auto 4.14 K/uL (1.7-7.0); Neutrophils Percent Auto 66.4 % (42.0-72.0); Platelet Count* 243 K/uL (140-440); RDW Coefficient of Variation % 12.5 % (11.5-15.5); Red Blood Count 2.85 m/uL (4.30-5.90); White Blood Count* 6.24 K/uL (4.50-11.00)
[2025-03-31 17:18] LABS: Slide Review Reflex No
[2025-03-31 17:30] LABS: Albumin* 4.1 g/dL (3.3-5.0); Chloride* 96 mmol/L (96-114)
[2025-03-31 17:31] LABS: Potassium* 4.5 mmol/L (3.6-5.1); Sodium* 125 mmol/L (135-149)
[2025-03-31 17:33] LABS: Blood Urea Nitrogen* 14 mg/dL (7-30); Creatinine* 1.1 mg/dL (0.5-1.5); Est. Creatinine Clearance* 51.96; Estimated Glomerular Filt Rate 69 ml/min
[2025-03-31 17:34] LABS: Alanine Aminotransferase* 13 U/L (4-50); Alkaline Phosphatase* 75 U/L (40-150); Anion Gap 10 mEq/L (7-15); Aspartate Amino Transferase* 31 U/L (12-35); Bilirubin Direct* 0.4 mg/dL (0.0-0.5); Bilirubin Total* 0.4 mg/dL (0.1-1.5); Calcium* 8.9 mg/dL (8.4-10.6); Carbon Dioxide* 19 mmol/L (20-32); Glucose* 92 mg/dL (60-115); INR 0.88 (0.91-1.10); Lipase* 292 U/L (23-300); Magnesium* 1.3 mg/dL (1.5-2.6); Prothrombin Time 12.7 Seconds; Total Protein* 6.7 g/dL (6.0-8.3)
[2025-03-31 17:35] LABS: Ethanol* 0.01 % (0.01-0.03); Partial Thromboplastin Time* 24 Seconds (23-33)
[2025-03-31 17:37] LABS: D Dimer Quantitative* 1.02 ug/ml (0.00-0.50)
[2025-03-31 17:40] LABS: C Reactive Protein* < 0.5 mg/dL (0.5-1.0)
[2025-03-31 17:45] LABS: NT Pro B Type NatriureticPept* 590 pg/mL
[2025-03-31 17:56] LABS: Immature Reticulocyte Fraction 2.4 % (2.3-13.4); Reticulocyte Hemoglobin Equivi 35.3 pg (29.0-35.0); Reticulocyte Percent 1.3 % (0.5-2.0); Reticulocytes Absolute 0.04 # (0.03-0.08)
[2025-03-31 18:02] LABS: Troponin I* < 0.01 ng/mL (0.01-0.04)
[2025-03-31] MEDS: 0.9 % SODIUM CHLORIDE 1000 ml 1,000 ML 75 ML IV (18:05)
--- NOTE | 2025-03-31 18:05 | CRLHL7_ITS ---
For Patients: As a result of the 21st Century Cures Act, medical imaging exams and procedure reports are released immediately into your electronic medical record. You may view this report before your referring provider. If you have questions, please contact your health care provider. INDICATION: Dyspnea. Chest pain. TECHNIQUE: Multiplanar CT pulmonary angiogram was performed after the administration of 95 mL of Isovue 370 intravenous contrast. COMPARISON: Chest radiographs 03/31/2025 FINDINGS: Lower neck: The visualized thyroid is unremarkable. Cardiovascular: Contrast opacification of the pulmonary arterial tree is adequate. Heart size is normal. Thoracic aorta and pulmonary artery are normal in caliber. Moderate atherosclerotic calcifications of the aortic arch. No significant coronary arterial calcifications. No pulmonary embolus. Mediastinum and lymph nodes: Small hiatal hernia with evidence of reflux. No pathologic mediastinal or hilar lymphadenopathy by size criteria. Lungs: No focal consolidation. 1.8 cm right lower lobe nodule in the azygoesophageal recess (5:123). Dependent atelectasis. Linear bandlike opacification of the lung bases bilaterally, likely subsegmental atelectasis and/or scarring. Airways: The trachea remains patent and midline. Mild diffuse peribronchial wall thickening. Pleura: No pleural effusions or pneumothorax. Chest wall: Unremarkable. Prominent axillary lymph nodes that do not meet size criteria for lymphadenopathy. Bones: No acute osseous abnormalities. Mild degenerative changes of the thoracic spine. Upper abdomen: No acute findings in the visualized upper abdomen. No reflux of contrast material into the IVC. IMPRESSION: 1. No pulmonary embolus. No CT evidence of right heart strain. 2. 1.8 cm right lower lobe nodule, indeterminate. Recommend further evaluation with PET-CT and/or histologic tissue analysis. 3. Small hiatal hernia with evidence of reflux. Please note that all CT scans at this facility use dose modulation, iterative reconstruction, and/or weight-based dosing when appropriate to reduce radiation dose to as low as reasonably achievable. Dictated by Hari Fulton MD @ 03/31/2025 7:26:59 PM (Electronically Signed)
[2025-03-31] MEDS: MAGNESIUM IV 2 GM/50 ML PIGGYBACK IVPB (18:08)
[2025-03-31 18:10] LABS: Total Iron Binding Capacity 256 ug/dL (261-462)
[2025-03-31 18:16] LABS: Iron* 61 ug/dL (49-181)
[2025-03-31 18:49] VITALS: BP 163/103; PULSE 87; RESP 18; TEMP 36.4; O2SAT 96
[2025-03-31 19:01] LABS: Percent Iron Saturation 24 % (20-50)
[2025-03-31 20:36] LABS: Troponin I* < 0.01 ng/mL (0.01-0.04)
== END 2025-03-31 21:07 | disposition home or self-care (01) ==
PROVIDERS: Emergency Provider Family Medicine; PCP Family Medicine
DX: E87.1 Hypo-osmolality and hyponatremia (principal); E83.42 Hypomagnesemia; R91.1 Solitary pulmonary nodule; R07.9 Chest pain, unspecified; I10 Essential (primary) hypertension; F10.90 Alcohol use, unspecified, uncomplicated; R20.0 Anesthesia of skin; R79.1 Abnormal coagulation profile; Z82.49 Family history of ischemic heart disease and other diseases of the circulatory system
CPT/HCPCS: 36415; 71045; 71275; 80053; 82077; 82248; 82728; 83540; 83550; 83605; 83690; 83735; 83880; 84484; 85025; 85045; 85379; 85610; 85730; 86140; 93005; 94761; 96365; 96366; 99284; 99285; A9270; J3475; J7030; Q9967